=== PATIENT | female | born 1995 | race Caucasian/White ===

== ENCOUNTER 2017-09-08 11:38 | Emergency (ER) | payer SELFPAY ==
[~2017-09-08] VITALS: Ht 157.5 cm; Wt 79.4 kg
[~2017-09-08 11:38] MED LIST: ACHD5005 PO; ALLERGY MEDS; AZIT250T PO; BCP; CEPH500T PO; FERR-47 PO; IBP600T1 PO; Ibuprofen PO; OMEP-10 PO; OXYC-12 PO; PREN1TAB71 PO
--- OUTSIDE RECORDS SUMMARY | 2017-09-08 11:44 | XMS REPORT ---
Author Author LEROY LUNA [facility] Address [address] [place] [address] Care Team Providers Care Hospice Music Therapy Name Role Phone LEROY LUNA Unavailable PROBLEMS Type Condition ICD9-CM Code [id number] Code Onset Dates Condition Status SNOMED Code Problem Routine or child health check V20.2 Active 927243221 Problem General counseling for prescription of oral contraceptives V25.01 Active 045121414608915 Problem Anxiety F41.9 Active 51698774 Problem Non morbid obesity due to excess calories E66.09 Active 350243255 Problem examination or test, positive result V72.42 Active 124639360 Problem Screening examination for pulmonary tuberculosis V74.1 Active 430321148 Problem MENINGOCOCCAL DX V03.89 Active 97271425 Problem Problems related to high-risk sexual behavior V69.2 Active 592188885 ALLERGIES No Information SOCIAL HISTORY Never Assessed PLAN OF CARE VITAL SIGNS MEDICATIONS Unknown Medications RESULTS Name Result Date Reference Range TEST, URINE (IN HOUSE) RESULTS Negative Lot # [id number] Control + Exp date 05/03/2018 PROCEDURES Procedure Date Ordered Result Body Site URINE TEST January 16, 2017 DEPO PROVERA (150 MG/ML) January 16, 2017 THER/PROPH/DIAG INJ, SC/IM January 16, 2017 IMMUNIZATIONS Vaccine Route Administration Date Status DEPO PROVERA (150 MG/ML) IM Intramuscular January 16, 2017 Administered MEDICAL (GENERAL) HISTORY Type Description Date Medical History anxiety
--- OUTSIDE RECORDS SUMMARY | 2017-09-08 11:44 | XMS REPORT ---
Author Author LEROY LUNA [facility] Address [address] [place] [address] Care Team Providers Care Metalizing Supervisor Name Role Phone LEROY LUNA Unavailable PROBLEMS Type Condition ICD9-CM Code [id number]-GL Code Onset Dates Condition Status SNOMED Code Problem Routine or child health check V20.2 Active 672492725 Problem General counseling for prescription of oral contraceptives V25.01 Active 181107130413650 Problem Anxiety F41.9 Active 57080647 Problem Non morbid obesity due to excess calories E66.09 Active 239933544 Problem examination or test, positive result V72.42 Active 552823921 Problem Screening examination for pulmonary tuberculosis V74.1 Active 028744941 Problem MENINGOCOCCAL DX V03.89 Active Problem Problems related to high-risk sexual behavior V69.2 Active 220974018 ALLERGIES No Information SOCIAL HISTORY Never Assessed PLAN OF CARE VITAL SIGNS MEDICATIONS Unknown Medications RESULTS Name Result Date Reference Range TEST, URINE (IN HOUSE) 2016-10-30 RESULTS negative Lot # [id number] Control + Exp date 12/2017 PROCEDURES Procedure Date Ordered Result Body Site DEPO PROVERA (150 MG/ML) Oct 30, 2016 THER/PROPH/DIAG INJ, SC/IM Oct 30, 2016 URINE TEST Oct 30, 2016 IMMUNIZATIONS Vaccine Route Administration Date Status DEPO PROVERA (150 MG/ML) IM Intramuscular Oct 30, 2016 Administered MEDICAL (GENERAL) HISTORY Type Description Date Medical History anxiety
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
--- OUTSIDE RECORDS SUMMARY | 2017-09-08 11:44 | XMS REPORT ---
Author Author DAVID BENJAMIN [facility] Address [address] [place] [address] Care Team Providers Care Division Supervisor Name Role Phone DAVID BENJAMIN Unavailable PROBLEMS Type Condition ICD9-CM Code [id number] Code Onset Dates Condition Status SNOMED Code Problem Routine infant or child health check V20.2 Active 328428079 Problem General counseling for prescription of oral contraceptives V25.01 Active 186994365984328 Problem Anxiety F41.9 Active 21040437 Problem Non morbid obesity due to excess calories E66.09 Active 226845731 Problem examination or test, positive result V72.42 Active 092009237 Problem Screening examination for pulmonary tuberculosis V74.1 Active 277778996 Problem MENINGOCOCCAL DX V03.89 Active Problem Problems related to high-risk sexual behavior V69.2 Active 246086215 ALLERGIES Substance Reaction Event Type Date Status Penicillin G Potassium diarrhea Drug Allergy Nov, Active SOCIAL HISTORY Never Assessed PLAN OF CARE Activity Details Follow Up 4 Weeks Reason:obesity VITAL SIGNS Height 62.7 in 2016-11-10 Weight 169.0 lbs 2016-11-10 Temperature 98.7 degrees Fahrenheit 2016-11-10 Heart Rate 96 bpm 2016-11-10 Respiratory Rate 22 2016-11-10 BMI 30.22 kg/m2 2016-11-10 Blood pressure systolic 110 mmHg 2016-11-10 Blood pressure diastolic 72 mmHg 2016-11-10 MEDICATIONS Medication Instructions Dosage Frequency Start Date End Date Duration Status Zoloft 20 MG/ML Orally Once a day 2.5 ml 24h Active Phentermine HCl 15 MG Orally Once a day 1 capsule 24h Nov, Active Depo-Provera 150 MG/ML Active RESULTS No Results PROCEDURES No Known procedures IMMUNIZATIONS No Known Immunizations MEDICAL (GENERAL) HISTORY Type Description Date Medical History anxiety
--- OUTSIDE RECORDS SUMMARY | 2017-09-08 11:44 | XMS REPORT ---
Author Author DAVID BENJAMIN [facility] Address [address] [place] [address] Care Team Providers Care Police Artist Name Role Phone DAVID BENJAMIN Unavailable PROBLEMS Type Condition ICD9-CM Code GJE59-MD Code Onset Dates Condition Status SNOMED Code Problem Routine infant or child health check V20.2 Active 249735903 Problem General counseling for prescription of oral contraceptives V25.01 Active 593020641745009 Problem Anxiety F41.9 Active 23369720 Problem Non morbid obesity due to excess calories E66.09 Active 155336362 Problem examination or test, positive result V72.42 Active 912163889 Problem Screening examination for pulmonary tuberculosis V74.1 Active 307949787 Problem MENINGOCOCCAL DX V03.89 Active Problem Problems related to high-risk sexual behavior V69.2 Active 362428904 ALLERGIES No Information SOCIAL HISTORY Never Assessed PLAN OF CARE VITAL SIGNS MEDICATIONS Unknown Medications RESULTS No Results PROCEDURES No Known procedures IMMUNIZATIONS No Known Immunizations MEDICAL (GENERAL) HISTORY Type Description Date Medical History anxiety
--- OUTSIDE RECORDS SUMMARY | 2017-09-08 11:44 | XMS REPORT ---
Author Author DAVID BENJAMIN [facility] Address [address] [place] [address] Care Team Providers Care Eating Disorder Psychologist Name Role Phone DAVID BENJAMIN Unavailable PROBLEMS Type Condition ICD9-CM Code OTI55-DG Code Onset Dates Condition Status SNOMED Code Problem Routine infant or child health check V20.2 Active 525461267 Problem General counseling for prescription of oral contraceptives V25.01 Active 444523208929848 Problem Anxiety F41.9 Active 90476446 Problem Non morbid obesity due to excess calories E66.09 Active 512244219 Problem examination or test, positive result V72.42 Active 977769924 Problem Screening examination for pulmonary tuberculosis V74.1 Active 414091601 Problem MENINGOCOCCAL DX V03.89 Active 71528936 Problem Problems related to high-risk sexual behavior V69.2 Active 342117408 ALLERGIES Substance Reaction Event Type Date Status Penicillin G Potassium diarrhea Drug Allergy January, Active SOCIAL HISTORY Never Assessed PLAN OF CARE Activity Details Follow Up 4 Weeks Reason:mood disorder VITAL SIGNS Height 62.7 in 2017-01-22 Weight 168.3 lbs 2017-01-22 Temperature 98.3 degrees Fahrenheit 2017-01-22 Heart Rate 80 bpm 2017-01-22 Respiratory Rate 20 2017-01-22 BMI 30.10 kg/m2 2017-01-22 Blood pressure systolic 112 mmHg 2017-01-22 Blood pressure diastolic 72 mmHg 2017-01-22 MEDICATIONS Medication Instructions Dosage Frequency Start Date End Date Duration Status Phentermine HCl 30 MG Orally Once a day 1 capsule 24h Nov,Feb 28 days Active Depo-Provera 150 MG/ML Active Fluoxetine HCl 20 mg Orally Once a day 1 capsule in the morning 24h January 30 day(s) Active RESULTS No Results PROCEDURES No Known procedures IMMUNIZATIONS No Known Immunizations MEDICAL (GENERAL) HISTORY Type Description Date Medical History anxiety
--- OUTSIDE RECORDS SUMMARY | 2017-09-08 11:44 | XMS REPORT ---
Author Author DAVID BENJAMIN [facility] Address [address] [place] [address] Care Team Providers Care Rotational Moulding Operator Name Role Phone DAVID BENJAMIN Unavailable PROBLEMS Type Condition ICD9-CM Code OUG06-VK Code Onset Dates Condition Status SNOMED Code Problem Routine infant or child health check V20.2 Active 808787363 Problem General counseling for prescription of oral contraceptives V25.01 Active 862014759177116 Problem Anxiety F41.9 Active 52945599 Problem Non morbid obesity due to excess calories E66.09 Active 205507976 Problem examination or test, positive result V72.42 Active 627116631 Problem Screening examination for pulmonary tuberculosis V74.1 Active 671294005 Problem MENINGOCOCCAL DX V03.89 Active Problem Problems related to high-risk sexual behavior V69.2 Active 844293846 ALLERGIES Substance Reaction Event Type Date Status Penicillin G Potassium diarrhea Drug Allergy Sep, Active SOCIAL HISTORY No smoking Hx information available PLAN OF CARE VITAL SIGNS Height 62.7 in 2016-09-08 Weight 169.5 lbs 2016-09-08 Temperature 98.1 degrees Fahrenheit 2016-09-08 Heart Rate 92 bpm 2016-09-08 Respiratory Rate 24 2016-09-08 BMI 30.31 kg/m2 2016-09-08 Blood pressure systolic 110 mmHg 2016-09-08 Blood pressure diastolic 68 mmHg 2016-09-08 MEDICATIONS Medication Instructions Dosage Frequency Start Date End Date Duration Status Zoloft 20 MG/ML Orally Once a day 2.5 ml 24h Active Depo-Provera 150 MG/ML Active RESULTS Name Result Date Reference Range TSH 2016-09-08 TSH 0.631 0.450-4.500 CMP 2016-09-08 Glucose, Serum 101 65-99 BUN 16 6-20 Creatinine, Serum 0.99 0.57-1.00 eGFR If NonAfricn Am 82 >59 eGFR If Africn Am 94 >59 BUN/Creatinine Ratio 16 8-20 Sodium, Serum 138 134-144 Potassium, Serum 4.7 3.5-5.2 Chloride, Serum 98 96-106 Carbon Dioxide, Total 27 18-29 Calcium, Serum 9.5 8.7-10.2 Protein, Total, Serum 7.1 6.0-8.5 Albumin, Serum 4.5 3.5-5.5 Globulin, Total 2.6 1.5-4.5 A/G Ratio 1.7 1.1-2.5 Bilirubin, Total 0.6 0.0-1.2 Alkaline Phosphatase, S 71 39-117 AST (SGOT) 12 0-40 ALT (SGPT) 20 0-32 CBC 2016-09-08 WBC 11.6 3.4-10.8 RBC 4.63 3.77-5.28 Hemoglobin 13.5 11.1-15.9 Hematocrit 41.3 34.0-46.6 MCV 89 79-97 MCH 29.2 26.6-33.0 MCHC 32.7 31.5-35.7 RDW 12.6 12.3-15.4 Platelets 316 150-379 Neutrophils 62 Lymphs 30 Monocytes 6 Eos 1 Basos 0 Immature Cells Neutrophils (Absolute) 7.3 1.4-7.0 Lymphs (Absolute) 3.5 0.7-3.1 Monocytes(Absolute) 0.7 0.1-0.9 Eos (Absolute) 0.1 0.0-0.4 Baso (Absolute) 0.0 0.0-0.2 Immature Granulocytes 1 Immature Grans (Abs) 0.1 0.0-0.1 NRBC Hematology Comments: PROCEDURES Procedure Date Ordered Related Diagnosis Body Site Office Visit, Est Pt., Level 3 Sep 08, 2016 [facility] Sep [facility], 2016 VENIPUNCT, ROUTINE* Sep 08, 2016 IMMUNIZATIONS No Known Immunizations
--- NOTE | 2017-09-08 11:59 | ED Cough/URI ---
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 She's been having body aches, general malaise, low-grade fever, poor appetite, sore throat since yesterday. 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 Her boss insisted that she come to the emergency room, she states that she did not want to come. Timing/Duration: just prior to arrival Severity/Quality: productive cough Associated Symptoms: cough, fever/chills Allergies and Home Medications Allergies Coded Allergies: No Known Drug Allergies (Unverified , 10/31/11) Home Medications Cephalexin 500 Mg Tablet, 500 MG PO TID, #21 Prescribed by: GABINO LOWERY on 11/24/152230 Constitutional: see HPI, chills, weakness EENTM: see HPI Respiratory: see HPI, cough Genitourinary: no symptoms reported Musculoskeletal: no symptoms reported Skin: no symptoms reported Past Nqxubsn-Klfqqy-Jtglaa Hx Patient Social History Alcohol Use: Denies Use Recreational Drug Use: No Smoking Status: Never a Smoker Recent Foreign Travel: No Contact w/Someone Who Travel: No Recent Hopitalizations: No Physical Abuse: No Sexual Abuse: No Immunizations Up To Date Tetanus Booster (TDap): Less than 5yrs PED Vaccines UTD: Yes Surgeries History of Surgeries: Yes (dental) Respiratory History of Respiratory Disorde: No Cardiovascular History of Cardiac Disorders: No Neurological History of Neurological Disord: No Reproductive System Hx Reproductive Disorders: No Gastrointestinal History of Gastrointestinal Di: No Musculoskeletal History of Musculoskeletal Dis: No Endocrine History of Endocrine Disorders: No Cancer History of Cancer: No Psychosocial History of Psychiatric Problem: No Suicide Risk Score: 0 Integumentary History of Skin or Integumenta: No Blood Transfusions History of Blood Disorders: No Adverse Reaction to a Blood Tr: No Family Medical History Significant Family History: No Pertinent Family Hx Physical Exam Vital Signs Capillary Refill : General Appearance: WD/WN, no apparent distress Eyes: Bilateral Eye Normal Inspection, Bilateral Eye PERRL, Bilateral Eye EOMI HEENT: PERRL/EOMI, normal ENT inspection Neck: non-tender, full range of motion Respiratory: normal breath sounds, no respiratory distress, no accessory muscle use Cardiovascular: regular rate, rhythm, no murmur Gastrointestinal: normal bowel sounds, non tender, soft Neurologic/Psychiatric: alert, normal mood/affect, oriented x 3 Skin: normal color, warm/dry Progress/Results/Core Measures Suspected Sepsis SIRS Temperature: Pulse: Respiratory Rate: Blood Pressure / Mean: Results/Orders Vital Signs/I&O Capillary Refill : Departure Impression Impression: Primary Impression: Influenza Disposition: 01 HOME, SELF-CARE Condition: Stable Departure-Patient Inst. Decision time for Depature: 11:57 Referrals: YUAN CLEVELAND MD (PCP/Family) Primary Care Physician Patient Instructions: Flu, Adult (DC) Add. Discharge Instructions: 1. Your symptoms are consistent with influenza especially after your exposure to people with influenza. This typically lasts about 5-7 days. Rest is keep. Please stay home so you do not spread this to others. Stay home for the next 2- 3 days. Tamiflu is a treatment option for influenza but only shortness symptoms in adults by 23 hours and a common side effect his nausea and headache. With this in mind it is not a miracle drug, it is expensive and not particularly effective. For this reason we will not give Tamiflu. However, if someone had lung disease was very young or very old then we would treat with Tamiflu. Since you are otherwise healthy the benefits do not outweigh the adverse effects of this drug that you're likely to experience. Work/School Note: Work Release Form Date Seen in the Emergency Department: Sep 08, 2017 Return to Work: Sep 11, 2017 TRUDY WALLIS APRN Sep 08, 2017 11:59
[2017-09-08 12:05] VITALS: BP 137/71
== END 2017-09-08 12:05 | disposition home or self-care (01) ==
LOC: EDUNIT# 11:38 → ER 11:40
DX: J11.1 Influenza due to unidentified influenza virus with other respiratory manifestations (principal)
CPT/HCPCS: 99282

== ENCOUNTER 2018-07-07 13:20 | Emergency (ER) | payer SELFPAY ==
[~2018-07-07] VITALS: Ht 157.5 cm; Wt 95.3 kg
[2018-07-07] MEDS ORDERED: SULF1TAB35 PO (13:44)
[2018-07-07] MEDS ORDERED: HYDR-4226 PO (13:44)
--- NOTE | 2018-07-07 13:44 | ED Integumentary General ---
General Chief Complaint: Skin/Wound Problems Stated Complaint: L ARM RASH Source: patient Exam Limitations: no limitations History of Present Illness Date Seen by Provider: Jul 07, 2018 Time Seen by Provider: 13:41 Initial Comments To ER with a red bump in the left axilla for about 4 days. Last night while at work she had some increasing redness around the and her boss informed her that she should have this evaluated. No fevers chills nausea vomiting or systemic symptoms. Timing/Duration: getting worse Severity: moderate Location: extremities (left axilla) Associated Symptoms: No fever Allergies and Home Medications Allergies Coded Allergies: No Known Drug Allergies (Unverified , 10/31/11) Home Medications Cephalexin 500 Mg Tablet, 500 MG PO TID Prescribed by: GABINO LOWERY on 11/24/15 2237 Patient Home Medication List Home Medication List Reviewed: Yes Review of Systems Review of Systems Constitutional: see HPI; No chills, No fever EENTM: see HPI Respiratory: no symptoms reported Cardiovascular: no symptoms reported Genitourinary: no symptoms reported Musculoskeletal: no symptoms reported Skin: see HPI Psychiatric/Neurological: No Symptoms Reported Endocrine: No Symptoms Reported Past Ansrwcb-Hkjwuq-Yuufzi Hx Patient Social History Recent Foreign Travel: No Contact w/Someone Who Travel: No Recent Hopitalizations: No Immunizations Up To Date Tetanus Booster (TDap): Less than 5yrs PED Vaccines UTD: Yes Past Medical History Surgeries: Yes (dental) Respiratory: No Cardiac: No Neurological: No Reproductive Disorders: No Gastrointestinal: No Musculoskeletal: No Endocrine: No Cancer: No Psychosocial: No Integumentary: No Blood Disorders: No Adverse Reaction/Blood Tranf: No Family Medical History No Pertinent Family Hx Physical Exam Vital Signs Capillary Refill : General Appearance: WD/WN, no apparent distress HEENT: PERRL/EOMI, normal ENT inspection Neck: non-tender, full range of motion Respiratory: no respiratory distress, no accessory muscle use Neurologic/Psychiatric: alert, normal mood/affect, oriented x 3 Skin: normal color, warm/dry, other (fluctuant area of erythema to the left axilla about 3 cm in diameter with about 6 cm of surrounding erythema without induration beyond this.) Skin Problem Character: abscess Procedures/Interventions I&D : Blade Size: 11 Progress Area cleaned with chlorhexidine swab. Anesthetized with 2 mL of 1% lidocaine without epinephrine. 11 blade scalpel was then used to make a 1 cm incision over the most lateral area of this abscess. Large amount of bloody purulent material was expressed. Culture was collected and sent to lab. Covered with gauze. Departure Impression Primary Impression: Abscess Disposition: 01 HOME, SELF-CARE Condition: Stable Departure-Patient Inst. Decision time for Depature: 13:43 Referrals: [facility] (PCP/Family) Primary Care Physician Patient Instructions: Skin Abscess Add. Discharge Instructions: 1. Return to ER for any concerns 2. Warm compresses to this area. Change the gauze as needed to collect the drainage that comes from this over the next 1-2 weeks. Antibiotics in the meantime and pain medication as needed. All discharge instructions reviewed with patient and/or family. Voiced understanding. Scripts Hydrocodone/Acetaminophen (Pettibone 5-325 Tablet) 1 Each Tablet 1 EACH PO Q6H PRN for PAIN-MODERATE MDD 10, #10 TAB Prov: TRUDY WALLIS MANAGER OF CASE MANAGEMENT 07/07/18 Sulfamethoxazole/Trimethoprim (Bactrim Ds Tablet) 1 Each Tablet 1 EACH PO BID, #14 TAB Prov: TRUDY WALLIS MANAGER OF CASE MANAGEMENT 07/07/18 TRUDY WALLIS MANAGER OF CASE MANAGEMENT Jul 07, 2018 13:44
[2018-07-07] MEDS ORDERED: LIDOCAINE 1% INJ 20 ML 20 ML VIAL INJ ONE (13:45)
[2018-07-07 13:50] VITALS: BP 129/64
--- OUTSIDE RECORDS SUMMARY | 2018-07-07 13:57 | XMS REPORT ---
Author Author DAVID BENJAMIN Organization [facility] Address [address] [place] [address] Care Team Providers Care Gold Tooler Name Role Phone DAVID BENJAMIN Unavailable PROBLEMS Type Condition ICD9-CM Code YQT82-LE Code Onset Dates Condition Status SNOMED Code Problem Irregular intermenstrual bleeding N92.1 Active 73022945 Problem Anxiety F41.9 Active 95065990 Problem Non morbid obesity due to excess calories E66.09 Active 517439746 ALLERGIES No Information ENCOUNTERS Encounter Location Date Diagnosis [place] [address] [address] Apr, [place] [address] 61817- 0066 Dec, Irregular intermenstrual bleeding N92.1 and Anxiety F41.9 [place] [address] 93396- 5213 Nov, Anxiety F41.9 [place] [address] 71620- 9308 Nov, Pharyngitis due to other organism J02.8 [place] [address] 94655- 5650 Sep, Routine screening for STI (sexually transmitted infection) Z11.3 [place] [address] 62812- 8905 Sep, Encounter for Depo-Provera contraception Z30.42 [place] [address] 88021- 6463 Jul, Encounter for Depo-Provera contraception Z30.42 [place] [address] 64922- 8804 Jun, Dysuria R30.0 [place] [address] [place] [id number] [place] [address] 17043- 0620 Apr, [place] [address] [place] [id number] [place] [address] 45813- 3286 Apr, [place] [address] [place] [id number] [place] [address] 57874- 9014 Apr, Encounter for Depo-Provera contraception Z30.42 [place] [address] [place] [id number] [place] [address] 32092- 5233 Feb, [place] [address] 22514- 6570 Feb, Anxiety F41.9 and Non morbid obesity due to excess calories E66.09 [place] [address] [place] [id number] [place] [address] 18138- 7888 Feb, Routine gynecological examination Z01.419 [place] [address] [place] [id number] [place] [address] 46456- 0629 January, Non morbid obesity due to excess calories E66.09 and Anxiety F41.9 [place] [address] [place] [id number] [place] [address] 38990- 3347 January, Encounter for Depo-Provera contraception Z30.42 [place] [address] [place] [id number] [place] [address] 22520- 1217 Dec, Non morbid obesity due to excess calories E66.09 [place] [address] [place] [id number] [place] [address] 78569- 9217 Nov, Non morbid obesity due to excess calories E66.09 [place] [address] [place] [id number] [place] [address] 01187- 9363 Oct, Encounter for Depo-Provera contraception Z30.42 [place] [address] [place] [id number] [place] [address] 61103- 1258 Oct, [facility] [address], [place] [address] 25[address] Sep, [facility] [address] [address]- 2546 Sep, Non morbid obesity due to excess calories E66.09 [facility] [id number], [place] [address] 25[address] May, [facility] [address], [place] [address] 2546 Apr, [facility] [id number] [place] [address] 61471- 2546 Apr, [facility] [id number] [place] [address] 70633- 2546 Apr, [facility] [id number] [place] [address] 54281- 2546 Nov, [facility] [id number], [place] [address]- 2546 Nov, [facility] [id number], [place] [address]- 2546 Oct, [facility] [id number], [place] [address]- 2546 Sep, [facility] [address] [place] [id number] [address]- 2546 Aug, IMMUNIZATIONS No Known Immunizations SOCIAL HISTORY Never Assessed REASON FOR VISIT needs refills PLAN OF CARE VITAL SIGNS MEDICATIONS Medication Instructions Dosage Frequency Start Date End Date Duration Status Fluoxetine HCl 20 mg Orally Once a day 1 capsule in the morning 24h January 30 day(s) Active RESULTS No Results PROCEDURES No Known procedures INSTRUCTIONS MEDICATIONS ADMINISTERED No Known Medications MEDICAL (GENERAL) HISTORY Type Description Date Medical History anxiety
--- OUTSIDE RECORDS SUMMARY | 2018-07-07 13:57 | XMS REPORT ---
Author Author REEMA CAMPOS [facility] Address [address] [place] [address] Care Team Providers Care On Line Csr Name Role Phone REEMA CAMPOS Unavailable PROBLEMS Type Condition ICD9-CM Code XTU52-FU Code Onset Dates Condition Status SNOMED Code Problem Anxiety F41.9 Active 90802115 Problem Non morbid obesity due to excess calories E66.09 Active 559073429 ALLERGIES No Information ENCOUNTERS Encounter Location Date Diagnosis [place] [address] 701[address]- 2897 Nov, Pharyngitis due to other organism J02.8 [place] [address] 12582- 4300 Sep, Routine screening for STI (sexually transmitted infection) Z11.3 [place] [address] 67705- 3686 Sep, Encounter for Depo-Provera contraception Z30.42 [place] [address] 42184- 4456 Jul, Encounter for Depo-Provera contraception Z30.42 [place] [address] 43184- 7203 Jun, Dysuria R30.0 [place] [address] [place] [id number] [place] [address] 59032- 4238 Apr, [place] [address] 10085- 8683 Apr, [place] [address] [place] [id number] [place] [address] 38881- 9524 Apr, Encounter for Depo-Provera contraception Z30.42 [place] [address] [place] [address] 44898- 0717 Feb, [place] [address] 46395- 7529 Feb, Anxiety F41.9 and Non morbid obesity due to excess calories E66.09 [place] [address] [place] [id number] [place] [address] 49163- 0256 Feb, Routine gynecological examination Z01.419 [place] [address] [place] [id number] [place] [address] 04328- 7055 January, Non morbid obesity due to excess calories E66.09 and Anxiety F41.9 [place] [address] [place] [id number] [place] [address] 86916- 0137 January, Encounter for Depo-Provera contraception Z30.42 [place] [address] 93158- 9194 Dec, Non morbid obesity due to excess calories E66.09 [place] [address] [place] [id number] [place] [address] 18538- 6524 Nov, Non morbid obesity due to excess calories E66.09 [place] [address] [place] [id number] [place] [address] 05012- 0211 Oct, Encounter for Depo-Provera contraception Z30.42 [place] [address] [place] [id number] [place] [address] 94959- 4299 Oct, [place] [address] [place] [id number] [place] [address] 95263- 8299 Sep, [place] [address] 68489- 8909 Sep, Non morbid obesity due to excess calories E66.09 [place] [address] [place] [id number] [place] [address] 38145- 7909 May, [place] [address] [place] [address]- 5598 Apr, [facility] [address] [address]- 2028 Apr, [facility] [address] [address]- 8546 Apr, [facility] [address] [address] 2546 Nov, [facility] [address] [place] [id number] [place] [address] 26471 2546 Nov, [facility] [address] [address]- 8536 Oct, [facility] [address] [address]- 3930 Sep, [facility] [id number] [address]- 5373 Aug, IMMUNIZATIONS No Known Immunizations SOCIAL HISTORY Never Assessed REASON FOR VISIT Pap hx updated PLAN OF CARE VITAL SIGNS MEDICATIONS No Known Medications RESULTS No Results PROCEDURES No Known procedures INSTRUCTIONS MEDICATIONS ADMINISTERED No Known Medications MEDICAL (GENERAL) HISTORY Type Description Date Medical History anxiety
--- OUTSIDE RECORDS SUMMARY | 2018-07-07 13:57 | XMS REPORT ---
Author Author GERALD DAS [facility] Address [address] [place] [address] Care Team Providers Care Stone Operator Name Role Phone GERALD DAS Unavailable PROBLEMS Type Condition ICD9-CM Code KGB22-KP Code Onset Dates Condition Status SNOMED Code Problem Irregular intermenstrual bleeding N92.1 Active 85949758 Problem Anxiety F41.9 Active 48015480 Problem Non morbid obesity due to excess calories E66.09 Active 664637358 ALLERGIES Substance Reaction Event Type Date Status Topamax nausea and vomiting Drug Allergy Dec, Active Penicillin G Potassium diarrhea Drug Allergy Dec, Active ENCOUNTERS Encounter Location Date Diagnosis [place] [address] [place] [id number] [place] [address] 72348- 3132 Apr, [place] [address] [place] [id number] [place] [address] 54461- 7336 Dec, Irregular intermenstrual bleeding N92.1 and Anxiety F41.9 [place] [address] [place] [id number] [place] [address] 56002- 1493 Nov, Anxiety F41.9 [place] [address] [place] [id number] [place] [address] 51602- 9387 Nov, Pharyngitis due to other organism J02.8 [place] [address] [place] [id number] [place] [address] 17974- 5388 Sep, Routine screening for STI (sexually transmitted infection) Z11.3 [place] [address] [place] [id number] [place] [address] 43180- 0760 Sep, Encounter for Depo-Provera contraception Z30.42 [place] [address] [place] [id number] [place] [address] 68050- 2530 Jul, Encounter for Depo-Provera contraception Z30.42 [facility] [address] [place] [id number] [place] [address] 78117- 3125 Jun, Dysuria R30.0 [facility] [address] [place] [id number] [place] [address] 68138- 7416 Apr, [facility] [address] [place] [id number] [place] [address] 56277- 2353 Apr, [facility] [address] [place] [id number] [place] [address] 39903- 5199 Apr, Encounter for Depo-Provera contraception Z30.42 [place] [address] 25239- 0459 Feb, [place] [address] [place] [id number] [place] [address] 45631- 5150 Feb, Anxiety F41.9 and Non morbid obesity due to excess calories E66.09 [place] [address] [place] [id number] [place] [address] 31926- 4101 Feb, Routine gynecological examination Z01.419 [place] [address] [place] [id number] [place] [address] 41320- 1984 January, Non morbid obesity due to excess calories E66.09 and Anxiety F41.9 [place] [address] [place] [id number] [place] [address] 01942- 2885 January, Encounter for Depo-Provera contraception Z30.42 [place] [address] [place] [id number] [place] [address] 69529- 6890 Dec, Non morbid obesity due to excess calories E66.09 [place] [address] [place] [id number] [place] [address] 39294- 1098 Nov, Non morbid obesity due to excess calories E66.09 [place] [address] [place] [id number] [place] [address] 60357- 9461 Oct, Encounter for Depo-Provera contraception Z30.42 [facility] [address], [place] [address]- 1697 Oct, [facility] [address] [place] [id number] [place] [address] 547986- 0426 Sep, [facility] [address] [place] [id number] [address]- 2223 Sep, Non morbid obesity due to excess calories E66.09 [facility] [address] [place] [id number] [address] May, [facility] [address] [place] [id number] [place] [address] 916243- 5747 Apr, [facility] [address] [place] [id number] [place] [address] 52497655- 8356 Apr, [facility] [address] [place] [id number] [place] [address] 92371- 5700 Apr, [facility] [address] [place] [id number], [place] [address]- 9607 Nov, [facility] [address] [place] [id number] [place] [address] 744867- 5014 Nov, [facility] [address], [place] [address]- 6525 Oct, [facility] [address], [place] [address]- 5294 Sep, [facility] [id number] [address] 3670 Aug, IMMUNIZATIONS No Known Immunizations SOCIAL HISTORY Never Assessed REASON FOR VISIT control consult--Robert, --she is currently on depo, it had made her gain weight and bleed for multiple weeks at a time. PLAN OF CARE Activity Details Follow Up 6 Months, prn Reason:well woman VITAL SIGNS Height 62.7 in 2017-12-10 Weight 189.8 lbs 2017-12-10 Temperature 98.5 degrees Fahrenheit 2017-12-10 Heart Rate 90 bpm 2017-12-10 Respiratory Rate 20 2017-12-10 BMI 33.94 kg/m2 2017-12-10 Blood pressure systolic 112 mmHg 2017-12-10 Blood pressure diastolic 68 mmHg 2017-12-10 MEDICATIONS Medication Instructions Dosage Frequency Start Date End Date Duration Status Fluoxetine HCl 20 mg Orally Once a day 1 capsule in the morning 24h January Active Ortho Tri-Cyclen (28) 0.18/0.215/0.25 MG-35 MCG Orally Once a day 1 tablet 24h Dec, 28 day(s) Active RESULTS Name Result Date Reference Range TEST, URINE (IN HOUSE) 2017-12-10 RESULTS Negative Lot # [id number] Control + Exp date 06/2019 PROCEDURES Procedure Date Ordered Result Body Site URINE TEST December 10, 2017 INSTRUCTIONS MEDICATIONS ADMINISTERED No Known Medications MEDICAL (GENERAL) HISTORY Type Description Date Medical History anxiety
--- OUTSIDE RECORDS SUMMARY | 2018-07-07 13:57 | XMS REPORT ---
Author Author DAVID BENJAMIN Organization [facility] Address [address] [place] [address] Care Team Providers Care Winder Operator Name Role Phone DAVID BENJAMIN Unavailable PROBLEMS Type Condition ICD9-CM Code XPZ57-BT Code Onset Dates Condition Status SNOMED Code Problem Irregular intermenstrual bleeding N92.1 Active 24662431 Problem Anxiety F41.9 Active 28324112 Problem Non morbid obesity due to excess calories E66.09 Active 280755094 ALLERGIES Substance Reaction Event Type Date Status Topamax nausea and vomiting Drug Allergy Apr, Active Penicillin G Potassium diarrhea Drug Allergy Apr, Active ENCOUNTERS Encounter Location Date Diagnosis [place] [id number] [place] [address] 28910- 6728 Apr, Right upper quadrant pain R10.11 [place] [id number] [place] [address] 76200- 5568 Dec, Irregular intermenstrual bleeding N92.1 and Anxiety F41.9 [place] [id number] [place] [address] 63395- 8829 Nov, Anxiety F41.9 [place] [id number] [place] [address] 06325- 4108 Nov, Pharyngitis due to other organism J02.8 [place] [id number] [place] [address] 27764- 2126 Sep, Routine screening for STI (sexually transmitted infection) Z11.3 [place] [id number] [place] [address] 29399- 8092 Sep, Encounter for Depo-Provera contraception Z30.42 [place] [id number] [place] [address] 43763- 6886 Jul, Encounter for Depo-Provera contraception Z30.42 [facility] [address] [place] [id number] [place] [address] 09098- 9962 Jun, Dysuria R30.0 [facility] [address] [place] [id number] [place] [address] 74682- 8451 Apr, [facility] [address] 23419- 3088 Apr, [facility] [address] [place] [id number] [place] [address] 76603- 5272 Apr, Encounter for Depo-Provera contraception Z30.42 [place] [address] 12164- 4124 Feb, [place] [address] [place] [id number] [place] [address] 53273- 7743 Feb, Anxiety F41.9 and Non morbid obesity due to excess calories E66.09 [place] [address] [place] [id number] [place] [address] 58185- 6501 Feb, Routine gynecological examination Z01.419 [place] [address] [place] [id number] [place] [address] 30511- 5675 January, Non morbid obesity due to excess calories E66.09 and Anxiety F41.9 [place] [address] [place] [id number] [place] [address] 00028- 0379 January, Encounter for Depo-Provera contraception Z30.42 [place] [address] [place] [id number] [place] [address] 30253- 2773 Dec, Non morbid obesity due to excess calories E66.09 [place] [address] [place] [id number] [place] [address] 53216- 6303 Nov, Non morbid obesity due to excess calories E66.09 [place] [address] [place] [id number] [place] [address] 75028- 4466 Oct, Encounter for Depo-Provera contraception Z30.42 [facility] [address] [address]- 9583 Oct, [facility] [address] [place] [id number] [place] [address] 69946- 4886 Sep, [facility] [address] [place] [id number] [place] [address] 890580- 3129 Sep, Non morbid obesity due to excess calories E66.09 [facility] [address] [place] [id number] [place] [address] 00851- 2621 May, [facility] [address] [place] [id number] [place] [address] 07421- 7918 Apr, [facility] [address] [place] [id number] [place] [address] 830025- 1406 Apr, [facility] [address] [place] [id number] [place] [address] 31051- 5474 Apr, [facility] [address] [place] [id number] [place] [address] 95947- 7111 Nov, [facility] [address] [place] [id number] [place] [address] 967700- 2283 Nov, [facility] [address] [place] [address] 25040- 8078 Oct, [facility] [address] [place] [id number] [place] [address] 40501- 2188 Sep, [facility] [address], [place] [address]- 6911 Aug, IMMUNIZATIONS No Known Immunizations SOCIAL HISTORY Never Assessed REASON FOR VISIT Cramping Pt c/o possible hernia and also abdominal pain and vomiting with greasy foods along with vomiting MARCO Ansari PLAN OF CARE VITAL SIGNS Height 62.7 in 2018-04-03 Weight 194.6 lbs 2018-04-03 Temperature 97.8 degrees Fahrenheit 2018-04-03 Heart Rate 76 bpm 2018-04-03 Respiratory Rate 18 2018-04-03 BMI 34.80 kg/m2 2018-04-03 Blood pressure systolic 104 mmHg 2018-04-03 Blood pressure diastolic 62 mmHg 2018-04-03 MEDICATIONS Medication Instructions Dosage Frequency Start Date End Date Duration Status Ortho Tri-Cyclen (28) 0.18/0.215/0.25 MG-35 MCG Orally Once a day 1 tablet 24h Dec, 28 day(s) Active Pantoprazole Sodium 20 mg Orally Once a day 1 tablet 24h Apr, 30 day(s) Active Fluoxetine HCl 20 mg Orally Once a day 1 capsule in the morning 24h January Active RESULTS No Results PROCEDURES Procedure Date Ordered Result Body Site COMPREHEN METABOLIC PANEL Apr 03, 2018 ASSAY OF LIPASE Apr 03, 2018 COMPLETE CBC W/AUTO DIFF WBC Apr 03, 2018 VENIPUNCT, ROUTINE* Apr 03, 2018 ASSAY OF AMYLASE Apr 03, 2018 INSTRUCTIONS MEDICATIONS ADMINISTERED No Known Medications MEDICAL (GENERAL) HISTORY Type Description Date Medical History anxiety
--- OUTSIDE RECORDS SUMMARY | 2018-07-07 13:57 | XMS REPORT ---
Author Author DAVID BENJAMIN Organization [facility] Address [address] [place] [address] Care Team Providers Care Certified Veterinary Technician Name Role Phone DAVID BENJAMIN Unavailable PROBLEMS Type Condition ICD9-CM Code PXA24-IU Code Onset Dates Condition Status SNOMED Code Problem Irregular intermenstrual bleeding N92.1 Active 23039589 Problem Anxiety F41.9 Active 99054397 Problem Non morbid obesity due to excess calories E66.09 Active 508846973 ALLERGIES Substance Reaction Event Type Date Status Topamax nausea and vomiting Drug Allergy Nov, Active Penicillin G Potassium diarrhea Drug Allergy Nov, Active ENCOUNTERS Encounter Location Date Diagnosis [address] [address] Dec, Irregular intermenstrual bleeding N92.1 and Anxiety F41.9 [place] [id number] [place] [address]30- 7004 Nov, Anxiety F41.9 [place] [id number] [place] [address] 81516- 7185 Nov, Pharyngitis due to other organism J02.[address] [address] Sep, Routine screening for STI (sexually transmitted infection) Z11.3 [place] [id number] [place] [address]52- 7722 Sep, Encounter for Depo-Provera contraception Z30.42 [place] [id number] [place] [address] 39506- 3292 Jul, Encounter for Depo-Provera contraception Z30.[address] [address]- [address] Jun, Dysuria R30.0 [place] [address] [place] [id number] [place] [address] 60094- 8698 Apr, [place] [address] 39[address]- 280[address] Apr, [place] [address] [address]- 7378 Apr, Encounter for Depo-Provera contraception Z30.42 [place] [address] 42732- 5[address] Feb, [place] [address] [address]83- 20[address] Feb, Anxiety F41.9 and Non morbid obesity due to excess calories E66.09 [place] [address] 26934- 7[address] Feb, Routine gynecological examination Z01.419 [place] [address] [address]- 68[address] January, Non morbid obesity due to excess calories E66.09 and Anxiety F41.9 [place] [address] [place] [id number] [place] [address] 94511- 5787 January, Encounter for Depo-Provera contraception Z30.42 [place] [address] [place] [id number] [place] [address] 87408- 1589 Dec, Non morbid obesity due to excess calories E66.09 [place] [address] [place] [id number] [place] [address] 12622- 1123 Nov, Non morbid obesity due to excess calories E66.09 [place] [address] 9[address]58- 3893 Oct, Encounter for Depo-Provera contraception Z30.42 [place] [address] [place] [id number] [place] [address] 53472- 5053 Oct, [facility] [address] [address] Sep, [facility] [address] [place] [id number] [place] [address] 31705- 1416 Sep, Non morbid obesity due to excess calories E66.09 [facility] [address] [address]46 May, [facility] [address] [place] [address] [id number] [place] [address] 26306- 1840 Apr, [facility] [address] [place] [address] 37664- 4260 Apr, [facility] [address] [place] [id number] [place] [address] 96580- 9046 Apr, [facility] [address] [place] [id number] [place] [address] 29076- 4228 Nov, [facility] [address] [place] [id number] [place] [address] 59536- 1272 Nov, [facility] [address] [place] [id number] [place] [address] 16598- 1344 Oct, [facility] [address] [address] Sep, [facility] [address] [address] Aug, IMMUNIZATIONS No Known Immunizations SOCIAL HISTORY Never Assessed REASON FOR VISIT Cough, reports woke up at midnight with her throat swollen and hurting, ears throbbing with ROLON, sinus congestion and drainage. Reports blood tinged drainage from nose. She had to call into work. CBrumbackRN PLAN OF CARE VITAL SIGNS Height 62.7 in 2017-11-08 Weight 188.0 lbs 2017-11-08 Temperature 98.9 degrees Fahrenheit 2017-11-08 Heart Rate 88 bpm 2017-11-08 Respiratory Rate 18 2017-11-08 BMI 33.62 kg/m2 2017-11-08 Blood pressure systolic 110 mmHg 2017-11-08 Blood pressure diastolic 64 mmHg 2017-11-08 MEDICATIONS Medication Instructions Dosage Frequency Start Date End Date Duration Status Depo-Provera 150 MG/ML 1 ml Active Phentermine HCl 30 MG Orally Once a day 1 capsule 24h Feb, Not-Taking Tessalon Perles 100 mg Orally Three times a day 1 capsule as needed 8h Nov, Active Amoxicillin 500 mg Orally every 8 hrs 1 capsule 8h Nov, Nov, 10 day(s) Active Fluoxetine HCl 20 mg Orally Once a day 1 capsule in the morning 24h January 30 day(s) Active RESULTS No Results PROCEDURES No Known procedures INSTRUCTIONS MEDICATIONS ADMINISTERED No Known Medications MEDICAL (GENERAL) HISTORY Type Description Date Medical History anxiety
--- OUTSIDE RECORDS SUMMARY | 2018-07-07 13:58 | XMS REPORT ---
Author Author LEROY LUNA [facility] Address [address] [place] [address] Care Team Providers Care Roll Mill Operator Name Role Phone CHERYL LEROY Unavailable PROBLEMS Type Condition ICD9-CM Code LGP38-UV Code Onset Dates Condition Status SNOMED Code Problem Irregular intermenstrual bleeding N92.1 Active 75760163 Problem Anxiety F41.9 Active 35811427 Problem Non morbid obesity due to excess calories E66.09 Active 478224653 ALLERGIES No Information ENCOUNTERS Encounter Location Date Diagnosis [place] [id number] [place] [address] Dec, Irregular intermenstrual bleeding N92.1 and Anxiety F41.9 [place] [id number] [place] [address] 23016- 7843 Nov, Anxiety F41.[address] [address] Nov, Pharyngitis due to other organism J02.8 [place] [id number] [place] [address] 21592- 6148 Sep, Routine screening for STI (sexually transmitted infection) Z11.3 [place] [id number] [place] [address] 47738- 4928 Sep, Encounter for Depo-Provera contraception Z30.[address] [address]- [address] Jul, Encounter for Depo-Provera contraception Z30.42 [place] [id number] [place] [address] 89672- 2017 Jun, Dysuria R30.0 [place] [id number] [place] [address] 51616- 9701 Apr, [facility] [address] [place] [address] [id number] [place] [address] 44645- 6899 Apr, [facility] [address] [place] [address] [id number] [place] [address] 69661- 5571 Apr, Encounter for Depo-Provera contraception Z30.42 [place] [address] [place] [address] [id number] [place] [address] 82383- 0300 Feb, [place] [address] [place] [id number] [place] [address] 78332- 4461 Feb, Anxiety F41.9 and Non morbid obesity due to excess calories E66.09 [place] [address] [place] [id number] [place] [address] 59389- 0902 Feb, Routine gynecological examination Z01.419 [place] [address] [place] [address] [id number] [place] [address] 20164- 3678 January, Non morbid obesity due to excess calories E66.09 and Anxiety F41.9 [place] [address] [place] [id number] [place] [address] 30549- 8150 January, Encounter for Depo-Provera contraception Z30.42 [place] [address] [place] [id number] [place] [address] 29026- 4983 Dec, Non morbid obesity due to excess calories E66.09 [place] [address] [place] [id number] [place] [address] 56563- 1840 Nov, Non morbid obesity due to excess calories E66.09 [place] [address] [place] [id number] [place] [address] 64540- 7536 Oct, Encounter for Depo-Provera contraception Z30.42 [place] [address] [place] [id number] [place] [address] 24299- 4607 Oct, [place] [address] [place] [id number] [place] [address] 17388- 0867 Sep, [facility] [address] [id number] [address] Sep, Non morbid obesity due to excess calories E66.09 [facility] [address], [place] [address]- [address] May, [facility] [address], [place] [address]- 25[address] Apr, [facility] [address], [place] [address]- 2546 Apr, [facility] [address], [place] [address]- 2546 Apr, [facility] [address], [place] [address]- 2546 Nov, [facility] [address], [place] [address]- 2546 Nov, [facility] [address], [place] [address]- 2546 Oct, [facility] [address], [place] [address]- 25[address] Sep, [facility] [address] [place] [id number] [address]- 2546 Aug, IMMUNIZATIONS Vaccine Route Administration Date Status DEPO PROVERA (150 MG/ML) IM Intramuscular Apr 10, 2017 Administered SOCIAL HISTORY Never Assessed REASON FOR VISIT Depo Provera injection--[email or web address] PLAN OF CARE Activity Details Follow Up 3 Months Reason: VITAL SIGNS MEDICATIONS No Known Medications RESULTS Name Result Date Reference Range TEST, URINE (IN HOUSE) 2017-04-10 RESULTS negative Lot # [id number] Control + Exp date 10/31/18 PROCEDURES Procedure Date Ordered Result Body Site URINE TEST Apr 10, 2017 DEPO PROVERA (150 MG/ML) Apr 10, 2017 THER/PROPH/DIAG INJ, SC/IM Apr 10, 2017 INSTRUCTIONS MEDICATIONS ADMINISTERED No Known Medications MEDICAL (GENERAL) HISTORY Type Description Date Medical History anxiety
--- OUTSIDE RECORDS SUMMARY | 2018-07-07 13:58 | XMS REPORT ---
Author Author DAVID BENJAMIN Organization [facility] Address [address] [place] [address] Care Team Providers Care Knifeman Name Role Phone DAVID BENJAMIN Unavailable PROBLEMS Type Condition ICD9-CM Code JIC14-UA Code Onset Dates Condition Status SNOMED Code Problem Anxiety F41.9 Active 25933564 Problem Non morbid obesity due to excess calories E66.09 Active 917523995 ALLERGIES Substance Reaction Event Type Date Status Topamax nausea and vomiting Drug Allergy Feb, Active Penicillin G Potassium diarrhea Drug Allergy Feb, Active ENCOUNTERS Encounter Location Date Diagnosis [address] [address] Nov, Pharyngitis due to other organism J02.8 [place] [address] 36448- 8128 Sep, Routine screening for STI (sexually transmitted infection) Z11.3 [place] [address] [place] [id number] [place] [address] 17227- 5090 Sep, Encounter for Depo-Provera contraception Z30.42 [place] [address] [place] [id number] [place] [address] 89068- 2150 Jul, Encounter for Depo-Provera contraception Z30.42 [place] [address] [place] [address] [place] [address] 17468- 0839 Jun, Dysuria R30.[address] [address]- [address]657 Apr, [place] [address] [place] [address] [place] [address] 63006- 1400 Apr, [place] [address] 68015- 0709 Apr, Encounter for Depo-Provera contraception Z30.42 [place] [address] [place] [address] [place] [address] 17308- 6268 Feb, [place] [address] [place] [address] [place] [address] 35991- 3551 Feb, Anxiety F41.9 and Non morbid obesity due to excess calories E66.09 [place] [address] [place] [address] [place] [address] 56217- 0363 Feb, Routine gynecological examination Z01.419 [place] [address] [place] [address] [place] [address] 66437- 1960 January, Non morbid obesity due to excess calories E66.09 and Anxiety F41.9 [place] [address] [place] [address] [place] [address] 21551- 6808 January, Encounter for Depo-Provera contraception Z30.42 [place] [address] [place] [address] [place] [address] 66541- 2278 Dec, Non morbid obesity due to excess calories E66.09 [place] [address] [place] [address] [place] [address] 62960- 6761 Nov, Non morbid obesity due to excess calories E66.09 [place] [address] [place] [address] [place] [address] 88776- 2441 Oct, Encounter for Depo-Provera contraception Z30.42 [place] [address] [place] [address] [place] [address] 49082- 2216 Oct, [place] [address] [place] [address] [place] [address] 66349- 3039 Sep, [place] [address] [place] [address] [place] [address] 94006- 7631 Sep, Non morbid obesity due to excess calories E66.09 [place] [address] [place] [address] [place] [address] 93537- 6957 May, [facility] [address] [id number] [address]- 2546 Apr, [facility] [address] [address]- 2546 Apr, [facility] [address] [place] [id number] [address]- 2546 Apr, [facility] [address] [address]- 2546 Nov, [facility] [address] [address]- 2546 Nov, [facility] [address] [address]- 2546 Oct, [facility] [address] [address]- 2546 Sep, [facility] [address] [place] [id number] [address]- 2546 Aug, IMMUNIZATIONS No Known Immunizations SOCIAL HISTORY Never Assessed REASON FOR VISIT Anxiety. KBoleRN PLAN OF CARE VITAL SIGNS Height 62.7 in 2017-02-22 Weight 162.2 lbs 2017-02-22 Temperature 98.9 degrees Fahrenheit 2017-02-22 Heart Rate 84 bpm 2017-02-22 Respiratory Rate 18 2017-02-22 BMI 29.00 kg/m2 2017-02-22 Blood pressure systolic 110 mmHg 2017-02-22 Blood pressure diastolic 74 mmHg 2017-02-22 MEDICATIONS Medication Instructions Dosage Frequency Start Date End Date Duration Status Depo-Provera 150 MG/ML Active Phentermine HCl 30 MG Orally Once a day 1 capsule 24h Feb, Active Fluoxetine HCl 20 mg Orally Once a day 1 capsule in the morning 24h January 30 day(s) Active Phentermine HCl 30 MG Orally Once a day 1 capsule 24h 10 Nov, 2016Feb 28 days Active RESULTS No Results PROCEDURES No Known procedures INSTRUCTIONS MEDICATIONS ADMINISTERED No Known Medications MEDICAL (GENERAL) HISTORY Type Description Date Medical History anxiety
--- OUTSIDE RECORDS SUMMARY | 2018-07-07 13:58 | XMS REPORT ---
Author Author REEMA CAMPOS [facility] Address [address] [place] [address] Care Team Providers Care Manager Image Name Role Phone ANDRES REEMA Unavailable PROBLEMS Type Condition ICD9-CM Code KWR94-YP Code Onset Dates Condition Status SNOMED Code Problem Anxiety F41.9 Active 34578942 Problem Non morbid obesity due to excess calories E66.09 Active 533263946 ALLERGIES Substance Reaction Event Type Date Status Penicillin G Potassium diarrhea Drug Allergy Feb, Active ENCOUNTERS Encounter Location Date Diagnosis [place] [address] [address] Nov, Pharyngitis due to other organism J02.8 [place] [address] 68289- 8892 Sep, Routine screening for STI (sexually transmitted infection) Z11.3 [place] [address] 39984- 4647 Sep, Encounter for Depo-Provera contraception Z30.42 [place] [address] [place] [id number] [place] [address] 25323- 6086 Jul, Encounter for Depo-Provera contraception Z30.42 [place] [address] [place] [id number] [place] [address] 78308- 6455 Jun, Dysuria R30.0 [place] [address] 86810- 1274 Apr, [place] [address] [place] [id number] [place] [address] 97180- 1598 Apr, [place] [address] 57270- 4349 Apr, Encounter for Depo-Provera contraception Z30.42 [facility] [id number] [place] [address] 44634- 9911 Feb, [facility] [address] [place] [id number] [place] [address] 09278- 7932 Feb, Anxiety F41.9 and Non morbid obesity due to excess calories E66.09 [facility] [address] 23373- 8833 Feb, Routine gynecological examination Z01.419 [facility] [address] [place] [id number] [place] [address] 98827- 3335 January, Non morbid obesity due to excess calories E66.09 and Anxiety F41.9 [facility] [address] [id number] [place] [address] 13627- 4103 January, Encounter for Depo-Provera contraception Z30.42 [facility] [address] [place] [id number] [place] [address] 46304- 0388 Dec, Non morbid obesity due to excess calories E66.09 [facility] [address] [place] [id number] [place] [address] 22337- 0637 Nov, Non morbid obesity due to excess calories E66.09 [facility] [address] [place] [id number] [place] [address] 35723- 5141 Oct, Encounter for Depo-Provera contraception Z30.42 [facility] [id number] [place] [address] 28684- 7249 Oct, [facility] [address] [id number] [place] [address] 81083- 2102 Sep, [facility] [address] [place] [id number] [place] [address] 76900- 2455 Sep, Non morbid obesity due to excess calories E66.09 [facility] [address] [id number] [place] [address] 75357- 5395 May, [facility] [address] [facility] [id number] [address]- [address] Apr, [facility] [id number], [place] [address]- 2546 Apr, [facility] [id number] [address]- 2546 Apr, [facility] [address], [place] [address]- 2546 Nov, [facility] [id number], [place] [address]- 2546 Nov, [facility] [address], [place] [address]- 2546 Oct, [facility] [address], [place] [address] 2546 Sep, [facility] [id number], [place] [address]- 2546 Aug, IMMUNIZATIONS No Known Immunizations SOCIAL HISTORY Never Assessed REASON FOR VISIT Well Woman Exam--- jana rogers PLAN OF CARE Activity Details Follow Up 1 Year, sooner prn Reason: VITAL SIGNS Height 62.7 in 2017-02-20 Weight 163.0 lbs 2017-02-20 Temperature 97.0 degrees Fahrenheit 2017-02-20 Heart Rate 70 bpm 2017-02-20 Respiratory Rate 18 2017-02-20 BMI 29.15 kg/m2 2017-02-20 Blood pressure systolic 126 mmHg 2017-02-20 Blood pressure diastolic 72 mmHg 2017-02-20 MEDICATIONS Medication Instructions Dosage Frequency Start Date End Date Duration Status Depo-Provera 150 MG/ML Active Fluoxetine HCl 20 mg Orally Once a day 1 capsule in the morning 24h January 30 day(s) Active RESULTS Name Result Date Reference Range TRICHOMONAS (IN HOUSE) 2017-02-20 TRICHOMONAS Negative Control + Lot # [id number] Exp date 18/02/30 BACTERIAL VAGINOSIS (IN HOUSE) 2017-02-20 RESULTS Negative Control + Lot # [id number] Exp date 19/08 CULTURE, GENITAL 2017-02-20 Genital Culture, Routine Final report Result 1 PDF Report 2017-02-20 PDF Report1 LCLS PAP TEST, HPV IF ASCUS 2017-02-20 DIAGNOSIS: Specimen adequacy: Clinician provided ICD10: Performed by: . . Note: . GC/CHLAM PROBE (STATE) 2017-02-20 CHLAMYDIA negative GC negative PROCEDURES Procedure Date Ordered Result Body Site SPECIMEN HANDLING February 20, 2017 CULTURE, BACTERIA, OTHER February 20, 2017 TRICHOMONAS ASSAY W/OPTIC February 20, 2017 CORRAL VAG, DNA, DIR PROBE February 20, 2017 No Charge February 20, 2017 INSTRUCTIONS MEDICATIONS ADMINISTERED No Known Medications MEDICAL (GENERAL) HISTORY Type Description Date Medical History anxiety
--- OUTSIDE RECORDS SUMMARY | 2018-07-07 13:58 | XMS REPORT ---
Author Author REEMA CAMPOS [facility] Address [address] [place] [address] Care Team Providers Care Grinder Set Up Operator Centerless Name Role Phone REEMA CAMPOS Unavailable PROBLEMS Type Condition ICD9-CM Code [id number] Code Onset Dates Condition Status SNOMED Code Problem Irregular intermenstrual bleeding N92.1 Active 48888147 Problem Anxiety F41.9 Active 42558468 Problem Non morbid obesity due to excess calories E66.09 Active 674769621 ALLERGIES No Information ENCOUNTERS Encounter Location Date Diagnosis [place] [id number] [place] [address] 70486- 7681 Dec, Irregular intermenstrual bleeding N92.1 and Anxiety F41.9 [place] [id number] [place] [address] 09458- 6057 Nov, Anxiety F41.9 [place] [address] 8[address]15- 1607 Nov, Pharyngitis due to other organism J02.8 [place] [id number] [place] [address] 71195- 7592 Sep, Routine screening for STI (sexually transmitted infection) Z11.3 [place] [id number] [place] [address] 75110- 5704 Sep, Encounter for Depo-Provera contraception Z30.42 [place] [id number] [place] [address] 93133- 0651 Jul, Encounter for Depo-Provera contraception Z30.42 [place] [id number] [place] [address] 57977- 9473 Jun, Dysuria R30.0 [place] [id number] [place] [address] 37512- 5868 Apr, [place] [id number] [place] [address] 18551- 3495 Apr, [facility] [place] [id number] [place] [address] 83424- 3046 Apr, Encounter for Depo-Provera contraception Z30.42 [place] [address] 76335- 9997 Feb, [place] [address] 85717- 5470 Feb, Anxiety F41.9 and Non morbid obesity due to excess calories E66.09 [place] [id number] [place] [address] 52405- 6142 Feb, Routine gynecological examination Z01.419 [place] [address] 29758- 0113 January, Non morbid obesity due to excess calories E66.09 and Anxiety F41.9 [place] [id number] [place] [address] 50309- 9080 January, Encounter for Depo-Provera contraception Z30.42 [place] [id number] [place] [address] 74972- 8654 Dec, Non morbid obesity due to excess calories E66.09 [place] [id number] [place] [address] 73379- 5673 Nov, Non morbid obesity due to excess calories E66.09 [place] [id number] [place] [address] 15139- 2483 Oct, Encounter for Depo-Provera contraception Z30.42 [place] [id number] [place] [address] 85988- 4690 Oct, [facility] [place] [address] 85027- 1136 Sep, [facility] [place] [id number] [address] 14[address] Sep, Non morbid obesity due to excess calories E66.09 [facility] [place] [address] [facility] [id number] [address] May, [facility] [place] [address] [address] 25[address] Apr, [facility] [place] [address] [address] 2546 Apr, [facility] [place] [id number] [place] [address] 01111- 2546 Apr, [facility] [place] [address] [address] 2546 Nov, [facility] [place] [id number] [place] [address] 26725- 2546 Nov, [facility] [place] [address] [address] 2016 Oct, [facility] [place] [address] [address] 2546 Sep, [facility] [place] [address] [address] 50[address] Aug, IMMUNIZATIONS No Known Immunizations SOCIAL HISTORY Never Assessed REASON FOR VISIT Rx for Depo PLAN OF CARE VITAL SIGNS MEDICATIONS Medication Instructions Dosage Frequency Start Date End Date Duration Status Depo-Provera 150 MG/ML 1 ml Active RESULTS No Results PROCEDURES No Known procedures INSTRUCTIONS MEDICATIONS ADMINISTERED No Known Medications MEDICAL (GENERAL) HISTORY Type Description Date Medical History anxiety
--- OUTSIDE RECORDS SUMMARY | 2018-07-07 13:58 | XMS REPORT ---
Author Author LEROY LUNA [facility] Address [address] [place] [address] Care Team Providers Care Buckle Attaching Machine Operator Name Role Phone CHERYL LEROY Unavailable PROBLEMS Type Condition ICD9-CM Code [id number] Code Onset Dates Condition Status SNOMED Code Problem Irregular intermenstrual bleeding N92.1 Active 62023474 Problem Anxiety F41.9 Active 38158838 Problem Non morbid obesity due to excess calories E66.09 Active 425181944 ALLERGIES No Information ENCOUNTERS Encounter Location Date Diagnosis [place] [id number] [place] [address] 98449- 7572 Dec, Irregular intermenstrual bleeding N92.1 and Anxiety F41.9 [place] [id number] [place] [address] 56361- 4814 Nov, Anxiety F41.[address] 75622- 2651 Nov, Pharyngitis due to other organism J02.8 [place] [id number] [place] [address] 39194- 8585 Sep, Routine screening for STI (sexually transmitted infection) Z11.3 [place] [id number] [place] [address] 70303- 6688 Sep, Encounter for Depo-Provera contraception Z30.[address] 0[address]- 9030 Jul, Encounter for Depo-Provera contraception Z30.42 [place] [id number] [place] [address] 98091- 9641 Jun, Dysuria R30.0 [place] [id number] [place] [address] 65233- 0664 Apr, [facility] [id number] [place] [address] 38507- 8592 Apr, [facility] [id number] [place] [address] 71090- 7167 Apr, Encounter for Depo-Provera contraception Z30.42 [place] [id number] [place] [address] 50456- 9484 Feb, [place] [id number] [place] [address] 17247- 8664 Feb, Anxiety F41.9 and Non morbid obesity due to excess calories E66.09 [place] [id number] [place] [address] 97203- 5694 Feb, Routine gynecological examination Z01.419 [place] [id number] [place] [address] 78624- 8426 January, Non morbid obesity due to excess calories E66.09 and Anxiety F41.9 [place] [id number] [place] [address] 72667- 4352 January, Encounter for Depo-Provera contraception Z30.42 [place] [id number] [place] [address] 32353- 5677 Dec, Non morbid obesity due to excess calories E66.09 [place] [id number] [place] [address] 06643- 5544 Nov, Non morbid obesity due to excess calories E66.09 [place] [id number] [place] [address] 26542- 1837 Oct, Encounter for Depo-Provera contraception Z30.42 [place] [id number] [place] [address] 46614- 0600 Oct, [place] [id number] [place] [address] 44050- 9884 Sep, [facility] [id number], [place] [address]- 2546 Sep, Non morbid obesity due to excess calories E66.09 [facility] [address], [place] [address]- 2546 May, [facility] [address], [place] [address]- 2546 Apr, [facility] [address], [place] [address]- 2546 Apr, [facility] [address], [place] [address]- 2546 Apr, [facility] [address], [place] [address]- 2546 Nov, [facility] [address], [place] [address]- 2546 Nov, [facility] [address], [place] [address]- 2546 Oct, [facility] [address], [place] [address]- 2546 Sep, [facility] [id number], [place] [address]- 2546 Aug, IMMUNIZATIONS Vaccine Route Administration Date Status DEPO PROVERA (150 MG/ML) IM Intramuscular Jul 04, 2017 Administered SOCIAL HISTORY Never Assessed REASON FOR VISIT Depo Provera injection---DBennettRJeanette PLAN OF CARE VITAL SIGNS MEDICATIONS No Known Medications RESULTS Name Result Date Reference Range TEST, URINE (IN HOUSE) 2017-07-04 RESULTS negative Lot # [id number] Control + Exp date 12/01/18 PROCEDURES Procedure Date Ordered Result Body Site URINE TEST Jul 04, 2017 DEPO PROVERA (150 MG/ML) Jul 04, 2017 THER/PROPH/DIAG INJ, SC/IM Jul 04, 2017 INSTRUCTIONS MEDICATIONS ADMINISTERED No Known Medications MEDICAL (GENERAL) HISTORY Type Description Date Medical History anxiety
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
== END 2018-07-07 13:50 | disposition home or self-care (01) ==
LOC: EDUNIT# 13:20 → ER 13:21
DX: L02.412 Cutaneous abscess of left axilla (principal)
CPT/HCPCS: 87070; 87077; 87186; 87205; 99282

== ENCOUNTER → 2018-08-07 | Outpatient (CLI) | payer MEDICAID ==
[~2018-08-07] MED LIST changes: +HYDR-4226 PO; +SULF1TAB35 PO
--- NOTE | 2018-08-07 14:51 | Diagnostic Imaging Report ---
PROCEDURE: US OB SINGLE FETUS <14 WKS. TECHNIQUE: Multiple real-time grayscale images were obtained over the gravid uterus in various projections. INDICATION: Dating. FINDINGS: The uterus measures 10.6 x 5.8 x 5.8 cm. There is an intrauterine gestational sac containing a pole. Ahtanum-rump length measurement is 13 mm consistent with 7 weeks 5 days gestation. heart rate was recorded at 158 beats per minute. No perigestational sac hemorrhage is seen. Gestational sac shape is within normal limits. Adnexal evaluation does show a cyst involving left ovary approximately 3.7 cm in diameter. IMPRESSION: 1. Single live IUP approximately 7 weeks 5 days gestational age. Estimated date of confinement sonographically is 03/21/2019. 2. A 3.7 cm left ovarian cyst. Dictated by: Dictated on workstation # [id number]
== END ==
LOC: RAD 13:29
PROVIDERS: ATTEND Family Medicine
DX: O34.81 Maternal care for other abnormalities of pelvic organs, first trimester (principal); N83.202 Unspecified ovarian cyst, left side; Z3A.01 Less than 8 weeks gestation of pregnancy
CPT/HCPCS: 76801

== ENCOUNTER → 2018-10-29 | Outpatient (CLI) | payer MEDICAID ==
--- NOTE | 2018-10-29 11:16 | Diagnostic Imaging Report ---
INDICATION: survey. TECHNIQUE: Multiple real-time grayscale images were obtained over the gravid uterus. COMPARISON: 08/07/2018. FINDINGS: There is a single living intrauterine in a cephalic presentation. There is normal volume amniotic fluid. Placenta is anterior. There is no previa. The biometry correlates with gestational age of 19 weeks 6 days. Anatomical survey is unremarkable. This includes a four chambered heart and three-vessel cord. Heart rate is 143 beats per minute and regular. Maternal adnexa is unremarkable. Biometrical measurements are as follows: Biparietal 4.41 cm, age 19 weeks 3 days. Head circumference 16.83 cm, age 19 weeks 4 days. Abdominal circumference 14.05 cm, age 19 weeks 4 days. Femur length 3.32 cm, age 20 weeks 3 days. Sonographic estimate age: 19 weeks 6 days. Sonographic estimated date of delivery: 03/19/2019. Estimated Weight: 315 gm (+/- 46 gm). LMP percentile: 61%. heart rate: 143 beats per minute. number: 1 of 1. IMPRESSION: Single living intrauterine with sonographic estimated gestational age of 19 weeks 6 days. Estimated date of confinement of 03/19/2019. Dictated by: Dictated on workstation # [id number]
== END ==
LOC: RAD 09:23
PROVIDERS: ATTEND Family Medicine
DX: Z36.89 Encounter for other specified antenatal screening (principal); Z3A.19 19 weeks gestation of pregnancy
CPT/HCPCS: 76805

== ENCOUNTER 2019-03-17 05:56 | Inpatient (IN) | payer MEDICAID ==
[~2019-03-17] VITALS: Ht 157.5 cm; Wt 108.4 kg
[2019-03-17] VITALS (56 sets, daily range): BP systolic 97–153; BP diastolic 53–86
[2019-03-17 06:46] LABS: BASOPHILS % (AUTO) 0 % (0-10); EOSINOPHILS # (AUTO) 0.1 10^3/uL (0.0-0.3); EOSINOPHILS % (AUTO) 1 % (0-10); HEMATOCRIT 35 % (35-52); HEMOGLOBIN 10.9 G/DL (11.5-16.0); LYMPHOCYTES # (AUTO) 2.7 X 10^3 (1.0-4.0); LYMPHOCYTES % (AUTO) 28 % (12-44); MEAN CORPUSCULAR HEMOGLOBIN 26 PG (25-34); MEAN CORPUSCULAR HGB CONC 32 G/DL (32-36); MEAN CORPUSCULAR VOLUME 82 FL (80-99); MEAN PLATELET VOLUME 13.2 FL (7.4-10.4); MONOCYTES # (AUTO) 0.7 X 10^3 (0.0-1.0); MONOCYTES % (AUTO) 7 % (0-12); NEUTROPHILS # (AUTO) 6.1 X 10^3 (1.8-7.8); NEUTROPHILS % (AUTO) 63 % (42-75); PLATELET COUNT 185 10^3/uL (130-400); RED CELL DISTRIBUTION WIDTH 13.9 % (10.0-14.5); WHITE BLOOD COUNT 9.6 10^3/uL (4.3-11.0)
[2019-03-17] MEDS: D5 LR IV SOLUTION 1,000 ML IV SCH ×2 (06:59→14:57)
--- NOTE | 2019-03-17 07:03 | History & Physical-OB ---
OB - Chief Complaint & HPI Date/Time Date of Admission: Date of Admission: Mar 17, 2019 at 05:56 Date seen by a Provider: Mar 17, 2019 Time Seen by a Provider: 07:05 Chief Complaint/History OB-Reason for Admission/Chief: Induction of Labor Hx : 3 Hx Para: 2 Expected Date of Delivery: Mar 21, 2019 Gestational Age in Weeks: 39 Gestational Age in Days: 3 Admission Nurse Assessment Rev: Yes History of Labs GBS neg Allergies and Home Medications Allergies Coded Allergies: No Known Drug Allergies (Unverified , 10/31/11) Home Medications Cephalexin 500 Mg Tablet, 500 MG PO TID Prescribed by: GABINO LOWERY on 11/24/15 2231 Hydrocodone/Acetaminophen 1 Each Tablet, 1 EACH PO Q6H PRN for PAIN-MODERATE Prescribed by: TRUDY WALLIS on 07/07/18 1344 Sulfamethoxazole/Trimethoprim 1 Each Tablet, 1 EACH PO BID Prescribed by: TRUDY WALLIS on 07/07/18 1344 Patient Home Medication List Home Medication List Reviewed: Yes OB - History Hx of Present Care: Yes Ultrasounds: Normal mid trimester US Obstetrical Complications: None Medical Complications: None Delivery History Hx Blood Disorders: No Adverse Rxn to Tranfusion: No Patient Past Medical History no chronic medical problems Social History/Family History Alcohol Use: Denies Use Recreational Drug Use: No 2nd Hand Smoke Exposure: No Immunizations Tetanus Booster (TDap): Less than 5yrs OB - Admission Exam Physical Exam HEENT: Moist Membranes Heart: Rhythm Normal Lungs: Clear Abdomen: Gravid Extremities: Normal Reflexes: Normal Cervical Dilatation: 1cm Effacement: 50% Station: -3 Membranes: Intact Heart Rate: 130's Accelerations: Accelerations Present Short Term Variability: Present Drafter Structural Variability: Average (6-25) Saldana Scoring Tool (Modified) Dilation (cm): 1-2cm (1) Effacement (%): 31-51% (1) Descent/Station: -3 (0) Cervix Consistency: Medium(1) Cervix Position: Middle/Mid-Position (1) Add 1 point for: Each previous vaginal delivery (1) Saldana Score: 6 Labs Laboratory Tests Test 03/17/19 06:30 Range/Units White Blood Count 9.6 4.3-11.0 10^3/uL Red Blood Count 4.21 L 4.35-5.85 10^6/uL Hemoglobin 10.9 L 11.5-16.0 G/DL Hematocrit 35 35-52 % Mean Corpuscular Volume 82 80-99 FL Mean Corpuscular Hemoglobin 26 25-34 PG Mean Corpuscular Hemoglobin Concent 32 32-36 G/DL Red Cell Distribution Width 13.9 10.0-14.5 % Platelet Count 185 130-400 10^3/uL Mean Platelet Volume 13.2 H 7.4-10.4 FL Neutrophils (%) (Auto) 63 42-75 % Lymphocytes (%) (Auto) 28 12-44 % Monocytes (%) (Auto) 7 0-12 % Eosinophils (%) (Auto) 1 0-10 % Basophils (%) (Auto) 0 0-10 % Neutrophils # (Auto) 6.1 1.8-7.8 X 10^3 Lymphocytes # (Auto) 2.7 1.0-4.0 X 10^3 Monocytes # (Auto) 0.7 0.0-1.0 X 10^3 Eosinophils # (Auto) 0.1 0.0-0.3 10^3/uL Basophils # (Auto) 0.0 0.0-0.1 10^3/uL OB - Assessment/Plan/Diagnosis Assessment Assessment: induction of labor Admission Dx IUP at 39w3d gestation Admission Status: Inpatient Order (span 2 midnights) Reason for Inpatient Admission: AROM and L&D Plan Plan: Induction Induction Method: AROM Other Plan -YUAN Ngo MD Mar 17, 2019 07:03
[2019-03-17] MEDS ORDERED: LACTATED RINGERS 1,000 ML IV ONE ×2 (07:07→09:14)
[2019-03-17] MEDS ORDERED: SUFENTA 0.6MCG/ML BUPIVA 0.125 100 ML ONE (07:08)
[2019-03-17] MEDS ORDERED: OXYTOCIN/NORMAL SALINE 500 ML IV ONE (07:08)
[2019-03-17] MEDS ORDERED: CALCIUM CARBONATE 500 MG (TUMS) TAB.CHEW PO PRN (08:30)
[2019-03-17] MEDS ORDERED: BUPIVACAINE 0.25% 30 ML (SENSORCAINE) VIAL ONE (08:31)
[2019-03-17] MEDS ORDERED: fentaNYL INJECTION 100 MCG/2 ML AMP ONE (08:31)
[2019-03-17] MEDS ORDERED: CATHETER FLUSH 10 ML SYR IV PRN (09:15)
[2019-03-17] MEDS ORDERED: EPIDURAL (SUFENTA 0.6MCG/ML BUPIVA 0.125%) 100 ML BAG EPI SCH (09:15)
[2019-03-17] MEDS ORDERED: ONDANSETRON 4 MG/2 ML (SDV) Z0FRAN IV PRN (09:15)
[2019-03-17] MEDS ORDERED: diphenhydrAMINE 50 MG/ML INJ (BENADRYL) IV PRN (09:15)
[2019-03-17] MEDS ORDERED: NALOXONE 0.4 MG/ML 1 ML (NARCAN) VIAL IV PRN (09:15)
[2019-03-17] MEDS ORDERED: OXYTOCIN/NORMAL SALINE 500 ML IV SCH ×2 (09:18→16:49)
[2019-03-17] MEDS ORDERED: CATHETER FLUSH 10 ML SYR IV SCH ×2 (14:00→22:00)
--- NOTE | 2019-03-17 16:49 | OB Labor & Delivery Record ---
L&D History Date of Service Date of Service: Mar 17, 2019 History Expected Date of Delivery: Mar 21, 2019 Gestational Age in Weeks: 39 Hx : 3 Hx Para: 3 Complications Events: Routine care Operative Indications (Cesarea: N/A-Vaginal Delivery Intrapartal Events: None Other Complications group B strep negative L&D Stage1 Stage One Onset of Labor - Date: Mar 17, 2019 Onset of Labor - Time: 07:08 Monitors and Tracing Monitor Mode: Internal Heart Rate: 145 Monitor Accelerations: Uniform Monitor Decelerations: None Station: -1 Group Home Variability: Average (6-10) Short Term Variability: Present Presentation: Vertex Vital Signs VS - Last 72 Hours, by Label 03/17/19 03/17/19 03/17/19 03/17/19 07:27 07:42 07:57 08:13 Temp 98.2 Pulse 84 89 90 87 Resp 18 18 18 18 B/P (MAP) 118/71 (87) 123/58 (79) 124/59 (80) 100/68 (79) O2 Delivery Room Air Room Air Room Air Room Air 03/17/19 03/17/19 03/17/19 03/17/19 08:20 08:43 08:46 08:49 Temp 97.8 Pulse 85 110 106 Resp 18 18 18 B/P (MAP) 138/73 (94) 153/83 (106) 139/72 (94) Pulse Ox 99 100 100 O2 Delivery Room Air Room Air Room Air 03/17/19 03/17/19 03/17/19 03/17/19 08:52 08:55 08:58 09:01 Pulse 86 85 86 87 Resp 18 18 18 18 B/P (MAP) 143/68 (93) 140/73 (95) 141/67 (91) 138/68 (91) Pulse Ox 99 99 98 O2 Delivery Room Air Room Air Room Air Room Air 03/17/19 03/17/19 03/17/19 03/17/19 09:04 09:07 09:09 09:22 Temp 97.9 Pulse 88 84 91 76 Resp 18 18 18 18 B/P (MAP) 137/86 (103) 114/63 (80) 119/64 (82) 136/65 (88) Pulse Ox 98 98 O2 Delivery Room Air Room Air Room Air Room Air 03/17/19 03/17/19 03/17/19 03/17/19 09:27 09:34 09:38 09:43 Pulse 81 85 73 103 Resp 18 18 18 18 B/P (MAP) 138/71 (93) 128/75 (92) 110/59 (76) Pulse Ox 99 98 99 99 O2 Delivery Room Air Room Air Room Air Room Air 03/17/19 03/17/19 03/17/19 03/17/19 09:55 10:09 10:23 10:38 Temp 97.7 Pulse 80 79 80 80 Resp 18 18 18 18 B/P (MAP) 132/63 (86) 128/72 (90) 126/62 (83) 116/56 (76) Pulse Ox 98 100 100 99 O2 Delivery Room Air Room Air Room Air Room Air 03/17/19 03/17/19 03/17/19 03/17/19 10:53 11:09 11:24 11:39 Pulse 76 95 85 86 Resp 18 18 18 18 B/P (MAP) 136/68 (90) 129/64 (85) 127/71 (89) 116/60 (78) Pulse Ox 98 99 99 98 O2 Delivery Room Air Room Air Room Air Room Air 03/17/19 03/17/19 03/17/19 03/17/19 11:53 12:08 12:23 12:38 Pulse 82 77 87 88 Resp 18 18 18 18 B/P (MAP) 122/69 (86) 131/68 (89) 123/59 (80) 118/62 (80) Pulse Ox 95 97 93 96 O2 Delivery Room Air Room Air Room Air Room Air 03/17/19 03/17/19 03/17/19 03/17/19 12:53 13:10 13:23 13:39 Temp 98.4 Pulse 82 99 90 93 Resp 18 18 18 18 B/P (MAP) 121/58 (79) 128/59 (82) 124/64 (84) 131/81 (98) Pulse Ox 97 98 98 98 O2 Delivery Room Air Room Air Room Air Room Air 03/17/19 03/17/19 03/17/19 03/17/19 13:54 14:09 14:39 14:54 Temp 98.2 Pulse 86 82 97 95 Resp 18 18 18 18 B/P (MAP) 132/61 (84) 126/58 (80) 133/63 (86) 121/79 (93) Pulse Ox 99 99 98 99 O2 Delivery Room Air Room Air Room Air Room Air 03/17/19 03/17/19 15:09 15:24 Pulse 78 82 Resp 18 18 B/P (MAP) 128/69 (88) 126/73 (90) Pulse Ox 98 99 O2 Delivery Room Air Room Air Signs of Distress by FHT Signs of Distress no Rupture of Membranes Spontaneous Ruture of Membrane: No Amniotic Membrane Rupture Time: 707 Amniotic Membrane Fluid Desc.: Clear Vaginal Bleeding Description: None Induction/Anesthesia Epidural Cath Placement - Time: 57 L&D Stage2 Stage Two Stage II Date: Mar 17, 2019 Stage II Time: 16:13 Monitors and Tracing Monitor Mode: Internal Heart Rate: 145 Monitor Accelerations: Uniform Monitor Decelerations: None Livestock Speculator Variability: Average (6-10) Position: Left Occiput Anterior Presentation: Vertex Signs of Distress by FHT Signs of Distress no Cord Descript/Complications Cord Vessel Description: 3 Vessels Delivery Type Infant Delivery Method: Spontaneous Vaginal Anterior Shoulder: Left Episiotomy/Perineal Laceration Laceraction(s)/Extensions: No Condition of Infant Delivery 1 minute Comment: 8 5 minute Comment: 9 Condition of Infant Condition of Infant: Living Exam: No Observed Abnormalities Resuscitation Resuscitation: N/A - Spontaneous Resp L&D Stage3 Stage Three Stage III Date: Mar 17, 2019 Stage III Time: 16:18 Pictocin Pitocin Administration mu/min: 12 Pitocin ml/hr: 12 Pitocin Administration Comment: 1149 PITOCIN INCREASED. Placenta Delivery Placenta Delivery: Spontaneous Delivery Summary Summary Estimated blood loss (mL): 200 Condition of Delivery Examined: Cervix Examined Post Hemorrhage: No Intervention Required none Condition of Mother excellent YUAN CLEVELAND MD Mar 17, 2019 16:49
[2019-03-17] MEDS ORDERED: WITCH HAZEL(TUCKS) 40 EA JAR TOP PRN (17:00)
[2019-03-17] MEDS ORDERED: MEASLES,MUMPS,RUBELLA 1 EA INJ SQ ONE (17:00)
[2019-03-17] MEDS ORDERED: BENZOCAINE/MENTHOL (DERMOPLAST) 56 ML CAN TP PRN (17:00)
[2019-03-17] MEDS ORDERED: TETANUS,DIPTH,PERTUSS P/F (BOOSTRIX) 0.5 ML VIAL IM ONE (17:00)
[2019-03-17] MEDS ORDERED: ACETAMINOPHEN 500 MG TAB (TYLENOL) PO SCH (18:00)
[2019-03-17] MEDS: IBUPROFEN 600 MG (MOTRIN) TAB PO SCH (18:53)
[2019-03-18] MEDS: DOCUSATE SODIUM 100 MG (COLACE) CAP PO SCH ×2 (00:15→09:35)
[2019-03-18 00:16] VITALS: BP 101/58
[2019-03-18] MEDS: IBUPROFEN 600 MG (MOTRIN) TAB PO SCH ×3 (00:16→12:21)
[2019-03-18 05:47] LABS: BASOPHILS % (AUTO) 0 % (0-10); EOSINOPHILS # (AUTO) 0.1 10^3/uL (0.0-0.3); EOSINOPHILS % (AUTO) 1 % (0-10); HEMATOCRIT 32 % (35-52); HEMOGLOBIN 10.1 G/DL (11.5-16.0); LYMPHOCYTES # (AUTO) 3.1 X 10^3 (1.0-4.0); LYMPHOCYTES % (AUTO) 26 % (12-44); MEAN CORPUSCULAR HEMOGLOBIN 26 PG (25-34); MEAN CORPUSCULAR HGB CONC 32 G/DL (32-36); MEAN CORPUSCULAR VOLUME 83 FL (80-99); MONOCYTES # (AUTO) 0.8 X 10^3 (0.0-1.0); MONOCYTES % (AUTO) 7 % (0-12); NEUTROPHILS # (AUTO) 7.9 X 10^3 (1.8-7.8); NEUTROPHILS % (AUTO) 66 % (42-75); PLATELET COUNT 167 10^3/uL (130-400); RED CELL DISTRIBUTION WIDTH 14.1 % (10.0-14.5)
--- NOTE | 2019-03-18 07:22 | Discharge Summary ---
Diagnosis/Chief Complaint Date of Admission Mar 17, 2019 at 05:56 Date of Discharge March 18, 2019 Discharge Date: Mar 18, 2019 Discharge Time: 18:00 Admission Diagnosis Admission Diagnosis 1. Intrauterine at 39 weeks gestation Discharge Diagnosis 1. Intrauterine at 39 weeks gestation Reason Hospital Visit 23-year-old 3 now term 3 L3 who initially presents to labor and delivery in the morning of March 17, 2019 at 39 weeks 2 days gestation for induction of labor. She was noted to have an uneventful course. Her EDC was March 22, 2019. Her GBS status at 36 weeks was noted to be negative. Discharge Summary-OBS Procedures 1. Epidural per anesthesia 2. Spontaneous vaginal delivery Discharge Physical Examination Allergies: Coded Allergies: No Known Drug Allergies (Unverified , 10/31/11) Vitals & I&Os Vital Signs Date Time Temp Pulse Resp B/P (MAP) Pulse Ox O2 Delivery O2 Flow Rate FiO2 03/18/19 00:16 97.8 81 18 101/58 (72) 98 Room Air General Appearance: No Acute Distress Respiratory: Clear to Auscultation Cardiovascular: Regular Rate Abdominal: Soft (With uterus firm) Extremities: No Tenderness/Swelling Skin: No Rashes Neuro: Normal Gait, Normal Speech Hospital Course Was the Problem List Reviewed?: Yes Following delivery patient underwent routine care orders. She had no complications during the remainder of hospital stay. Her pre-hemoglobin before delivery was 10.9 and the day after delivery 10.1. Patient was tolerating regular diet. She had no complaints of shortness of breath or leg pain on March 18. She was felt ready for dismissal during the afternoon of March 18, 2019 with all questions answered. She will go ahead and utilize ibuprofen for the next 2 weeks for cramping. Pending Labs Laboratory Tests 03/18/19 05:25: White Blood Count 12.0, Red Blood Count 3.82, Hemoglobin 10.1, Hematocrit 32, Mean Corpuscular Volume 83, Mean Corpuscular Hemoglobin 26, Mean Corpuscular Hemoglobin Concent 32, Red Cell Distribution Width 14.1, Platelet Count 167, Mean Platelet Volume 13.0, Neutrophils (%) (Auto) 66, Lymphocytes (%) (Auto) 26, Monocytes (%) (Auto) 7, Eosinophils (%) (Auto) 1, Basophils (%) (Auto) 0, Neutrophils # (Auto) 7.9, Lymphocytes # (Auto) 3.1, Monocytes # (Auto) 0.8, Eosinophils # (Auto) 0.1, Basophils # (Auto) 0.0 Discharge Instructions to patient/family Please see electronic discharge instructions given to patient. Discharge Medications Reviewed and agree with Discharge Medication list on patient's Discharge Instruction sheet Clinical Quality Measures DVT/VTE Risk/Contraindication: Risk Factor Score Per Nursin RFS Level Per Nursing on Admit: 1=Low/No VTE PPX YUAN CLEVELAND MD Mar 18, 2019 07:22
--- NOTE | 2019-03-18 07:25 | Discharge Inst-Women's Service ---
Discharge Inst-Women's Serv Depart Medication/Instructions Instructions He may take ibuprofen [id number] 200 mg and take 3 tablets every 6 hours as needed for uterine cramping. Consults/Follow Up Additional Follow Up: Yes Activity Activity: Activity as Tolerated Driving Instructions: You May Drive Nothing Inside Vagina: No [place] (For 6 weeks) Diet Discharge Diet: Regular Diet Return to The Hospital For: As below Symptoms to Report to : Pain Increased, Fever Over 101 Degrees F, Vaginal Bleeding Increase, Vaginal Discharge Foul For Any Problems or Questions: Contact Your Physician YUAN CLEVELAND MD Mar 18, 2019 07:25
[2019-03-18 09:34] VITALS: BP 120/78
--- NOTE | 2019-03-18 09:44 | Anesthesia-Regional Post-Op ---
Regional Patient Condition Mental Status: Alert, Oriented x3 Circulation: Same as Pre-Op Headache: Absent Sensation: Full Recovery Motor Block: Absent Post Op Complications Complications None Follow Up Care/Instructions Patient Instructions None needed. Anesthesia/Patient Condition Patient is doing well, no complaints, stable vital signs, no apparent adverse anesthesia problems. No complications reported per nursing. D/C home per [facility] Criteria: Yes OLGA NEWELL CRNA Mar 18, 2019 09:44
[2019-03-18 14:35] VITALS: BP 139/83
== END 2019-03-18 18:35 | disposition home or self-care (01) | DRG 807 ==
LOC: LDRP 05:56
PROVIDERS: ADMIT Family Medicine; ATTEND Family Medicine
PROC: 10E0XZZ Delivery of Products of Conception, External Approach (ICD-10-PCS; principal; 2019-03-17)
PROC: 10907ZC Drainage of Amniotic Fluid, Therapeutic from Products of Conception, Via Natural or Artificial Opening (ICD-10-PCS; 2019-03-17)
DX: O80 Encounter for full-term uncomplicated delivery (principal); Z37.0 Single live birth; Z3A.39 39 weeks gestation of pregnancy
CPT/HCPCS: 36415; 85025; 86850; 86900; 86901

== ENCOUNTER 2019-07-03 05:57 | Emergency (ER) | payer SELFPAY ==
[~2019-07-03] VITALS: Ht 157 cm; Wt 113.6 kg
[2019-07-03] MEDS ORDERED: NS IV 1000 ML 1,000 ML IV STA (06:39)
[2019-07-03] MEDS ORDERED: diphenhydrAMINE 50 MG/ML INJ (BENADRYL) IV STA (06:39)
[2019-07-03] MEDS ORDERED: PROMETHAZINE INJ 25 MG/ML (PHENERGAN) AMP IVP STA (06:39)
[2019-07-03] MEDS ORDERED: DEXAMETHASONE 10 MG/ML (DECADRON) 1 ML VIAL IV ONE (06:45)
[2019-07-03 07:11] LABS: BASOPHILS % (AUTO) 0 % (0-10); EOSINOPHILS # (AUTO) 0.1 10^3/uL (0.0-0.3); EOSINOPHILS % (AUTO) 1 % (0-10); HEMATOCRIT 38 % (35-52); HEMOGLOBIN 12.3 G/DL (11.5-16.0); LYMPHOCYTES # (AUTO) 1.5 X 10^3 (1.0-4.0); LYMPHOCYTES % (AUTO) 25 % (12-44); MEAN CORPUSCULAR HEMOGLOBIN 27 PG (25-34); MEAN CORPUSCULAR HGB CONC 32 G/DL (32-36); MEAN CORPUSCULAR VOLUME 84 FL (80-99); MEAN PLATELET VOLUME 12.4 FL (7.4-10.4); MONOCYTES # (AUTO) 0.7 X 10^3 (0.0-1.0); MONOCYTES % (AUTO) 12 % (0-12); NEUTROPHILS # (AUTO) 3.6 X 10^3 (1.8-7.8); NEUTROPHILS % (AUTO) 62 % (42-75); PLATELET COUNT 204 10^3/uL (130-400); RED CELL DISTRIBUTION WIDTH 14.2 % (10.0-14.5); WHITE BLOOD COUNT 5.8 10^3/uL (4.3-11.0)
--- NOTE | 2019-07-03 07:20 | ED Headache ---
General Chief Complaint: Head/Cervical Problems Stated Complaint: MIGRAINE,CP Source: patient Exam Limitations: no limitations History of Present Illness Date Seen by Provider: Jul 03, 2019 Time Seen by Provider: 06:31 Initial Comments Here with report of headache that is frontal and persistent since Sunday. It has waxed and waned since onset and does respond a little bit to meds but has persisted. Also now with intermittent anterior central chest pressure that has been going on since last night. She has tried a variety of different medicines for the headache including Tylenol, Excedrin, Naprosyn and ibuprofen. Last dose of medicine was at 3 AM which was Tylenol. She reports taking a dose of Naprosyn last night at about 10 PM. Onset on Sunday with fever and body aches that then turned into the headache and chest discomfort. No report of neck pain or vision disturbances. She drove here. Timing/Duration: other (2 days) Severity/Quality: moderate Location: frontal Prior Headaches/Recent Trauma: occasional headaches Modifying Factors: improves with medication, improves with rest Associated Symptoms: No confusion; fatigue, fever/chills; No stiff neck, No vision changes, No weakness Allergies and Home Medications Allergies Coded Allergies: No Known Drug Allergies (Unverified , 10/31/11) Home Medications No Active Prescriptions or Reported Meds Patient Home Medication List Home Medication List Reviewed: Yes Review of Systems Review of Systems Constitutional: see HPI; No chills; fever Eyes: See HPI Ears, Nose, Mouth, Throat: no symptoms reported Respiratory: No cough, No short of breath Cardiovascular: chest pain; No edema, No palpitations Gastrointestinal: no symptoms reported; No nausea, No vomiting Genitourinary: no symptoms reported Musculoskeletal: no symptoms reported Skin: no symptoms reported Psychiatric/Neurological: See HPI All Other Systems Reviewed Negative Unless Noted: Yes Past Khidplx-Wbtimu-Dkwjyy Hx Past Med/Social Hx: Reviewed Nursing Past Med/Soc Hx Patient Social History Alcohol Use: Denies Use Recreational Drug Use: No Smoking Status: Never a Smoker 2nd Hand Smoke Exposure: No Recent Foreign Travel: No Contact w/Someone Who Travel: No Recent Hopitalizations: No Physical Abuse: No Sexual Abuse: No Mistreated: No Fear: No Immunizations Up To Date Tetanus Booster (TDap): Less than 5yrs PED Vaccines UTD: Yes Seasonal Allergies Seasonal Allergies: No Past Medical History Surgeries: Yes (dental) Respiratory: No Cardiac: No Neurological: No Reproductive Disorders: No Gastrointestinal: No Musculoskeletal: No Endocrine: No Cancer: No Psychosocial: No Integumentary: No Blood Disorders: No Adverse Reaction/Blood Tranf: No Family Medical History Reviewed Nursing Family Hx No Pertinent Family Hx Physical Exam Vital Signs Vital Signs - First Documented 07/03/19 06:53 Temp 36.8 Pulse 90 Resp 18 B/P (MAP) 154/99 (117) Pulse Ox 90 O2 Delivery Room Air Capillary Refill : Height, Weight, BMI Height: 5'2.00" Weight: 239lbs. 0.2oz. [id number]; 43.7 BMI Method:Stated General Appearance: WD/WN, no apparent distress HEENT: PERRL/EOMI, pharynx normal Neck: full range of motion, supple Cardiovascular: regular rate, rhythm, no murmur Respiratory: lungs clear, normal breath sounds Gastrointestinal: non tender, soft Back: normal inspection, no CVA tenderness, no vertebral tenderness Extremities: normal range of motion, non-tender Psychiatric: alert, oriented x 3 [place] Nerves: normal hearing, normal speech, PERRL Coordination/Gait: normal gait Motor/Sensory: no motor deficit, no sensory deficit Skin: normal color, warm/dry Progress/Results/Core Measures Results/Orders Lab Results Laboratory Tests Test 07/03/19 06:49 07/03/19 07:00 Range/Units White Blood Count 5.8 4.3-11.0 10^3/uL Red Blood Count 4.54 4.35-5.85 10^6/uL Hemoglobin 12.3 11.5-16.0 G/DL Hematocrit 38 35-52 % Mean Corpuscular Volume 84 80-99 FL Mean Corpuscular Hemoglobin 27 25-34 PG Mean Corpuscular Hemoglobin Concent 32 32-36 G/DL Red Cell Distribution Width 14.2 10.0-14.5 % Platelet Count 204 130-400 10^3/uL Mean Platelet Volume 12.4 H 7.4-10.4 FL Neutrophils (%) (Auto) 62 42-75 % Lymphocytes (%) (Auto) 25 12-44 % Monocytes (%) (Auto) 12 0-12 % Eosinophils (%) (Auto) 1 0-10 % Basophils (%) (Auto) 0 0-10 % Neutrophils # (Auto) 3.6 1.8-7.8 X 10^3 Lymphocytes # (Auto) 1.5 1.0-4.0 X 10^3 Monocytes # (Auto) 0.7 0.0-1.0 X 10^3 Eosinophils # (Auto) 0.1 0.0-0.3 10^3/uL Basophils # (Auto) 0.0 0.0-0.1 10^3/uL Sodium Level 141 135-145 MMOL/L Potassium Level 3.8 3.6-5.0 MMOL/L Chloride Level 107 98-107 MMOL/L Carbon Dioxide Level 23 21-32 MMOL/L Anion Gap 11 5-14 MMOL/L Blood Urea Nitrogen 10 7-18 MG/DL Creatinine 0.71 0.60-1.30 MG/DL Estimat Glomerular Filtration Rate > 60 BUN/Creatinine Ratio 14 Glucose Level 98 70-105 MG/DL Calcium Level 8.9 8.5-10.1 MG/DL Corrected Calcium 9.1 8.5-10.1 MG/DL Total Bilirubin 0.2 0.1-1.0 MG/DL Aspartate Amino Transf (AST/SGOT) 21 5-34 U/L Alanine Aminotransferase (ALT/SGPT) 32 0-55 U/L Alkaline Phosphatase 88 40-136 U/L Troponin I < 0.028 <0.028 NG/ML C-Reactive Protein High Sensitivity 4.43 H 0.00-0.50 MG/DL Total Protein 6.9 6.4-8.2 GM/DL Albumin 3.7 3.2-4.5 GM/DL Urine Color YELLOW Urine Clarity CLEAR Urine pH 6 5-9 Urine Specific [place] 1.005 L 1.016-1.022 Urine Protein NEGATIVE NEGATIVE Urine Glucose (UA) NEGATIVE NEGATIVE Urine Ketones NEGATIVE NEGATIVE Urine Nitrite NEGATIVE NEGATIVE Urine Bilirubin NEGATIVE NEGATIVE Urine Urobilinogen NORMAL NORMAL MG/DL Urine Leukocyte Esterase NEGATIVE NEGATIVE Urine RBC (Auto) NEGATIVE NEGATIVE Urine RBC NONE /HPF Urine WBC NONE /HPF Urine Squamous Epithelial Cells 2-5 /HPF Urine Crystals NONE /LPF Urine Bacteria NEGATIVE /HPF Urine Casts NONE /LPF Urine Mucus NEGATIVE /LPF Urine Culture Indicated NO Micro Results Microbiology 07/03/19 Influenza Types A,B Antigen (JAQUELIN) - Final, Complete My Orders Orders - GABINO LOWERY MD Ed Iv/Invasive Line Start (07/03/19 06:39) Urine Bedside (07/03/19 06:39) Ekg Tracing (07/03/19 06:39) Cbc With Automated Diff (07/03/19 06:39) Comprehensive Metabolic Panel (07/03/19 06:39) Hs C Reactive Protein (07/03/19 06:39) Troponin I (07/03/19 06:39) Promethazine Injection (Phenergan Injec (07/03/19 06:39) Ns Iv 1000 Ml (Sodium Chloride 0.9%) (07/03/19 06:39) Diphenhydramine Injection (Benadryl Inje (07/03/19 06:39) Dexamethasone Injection (Decadron Inject (07/03/19 06:45) Ua Culture If Indicated (07/03/19 07:14) Ketorolac Injection (Toradol Injection) (07/03/19 07:23) Influenza A And B Antigens (07/03/19 07:49) Chest Pa/Lat (2 View) (07/03/19 07:49) Medications Given in ED Current Medications Medications Dose Ordered Sig/Pool Route Start Time Stop Time Status Last Admin Dose Admin Dexamethasone Sodium Phosphate 10 mg ONCE ONCE IV 07/03/19 06:45 07/03/19 06:46 DC 07/03/19 06:58 10 MG Vital Signs/I&O 07/03/19 06:53 Temp 36.8 Pulse 90 Resp 18 B/P (MAP) 154/99 (117) Pulse Ox 90 O2 Delivery Room Air Progress Progress Note : Progress Note Seen and evaluated. IV, labs, UA and UCG ordered. Normal saline 1 L bolus. Phenergan 25 mg IV, Toradol 30 mg IV, Benadryl 25 mg IV and Decadron 10 mg IV ordered. Monitor patient. 0920: Chest x-ray and influenza screen added. These are negative. Overall no acute findings and she is doing better. Discharged home with return precautions. Patient and family verbalize understanding instructions and agreement with plan. Initial ECG Impression Date: Jul 03, 2019 Initial ECG Impression Time: 06:43 Initial ECG Rate: 80 Initial ECG Rhythm: Normal Sinus Initial ECG Comparisson: No Previous ECG Available Comment Sinus rhythm with left atrial abnormality. No evidence of ST elevation [place]. Interpreted by me. Diagnostic Imaging Diagonstic Imaging: Xray Plain Films/CT/US/NM/MRI: chest Comments [facility] POS [place], [place] POS NAME: [facility] REC#: [id number] PT STATUS: REG ER : 1995 PHYSICIAN: GABINO LOWERY MD ADMIT DATE: 07/03/19/ER Draft POSDate of Exam:07/03/19 CHEST PA/LAT (2 VIEW) INDICATION: Persistent headache and back pain. PA and lateral chest obtained at 0822 a.m. and compared to 11/24/15. Heart and mediastinal silhouette are normal in appearance. The lungs are clear. There is no pneumothorax or pleural fluid. IMPRESSION: Negative chest. Dictated on workstation # [id number] Dict: 07/03/19825 Trans: 07/03/19829 [facility] [id number] Interpreted by: MARTIN BUSTAMANTE MD Electronically signed by: Departure Impression Primary Impression: Frontal headache Disposition: 01 HOME, SELF-CARE Condition: Improved Departure-Patient Inst. Decision time for Depature: 09:21 Referrals: YUAN CLEVELAND MD (PCP/Family) Primary Care Physician Patient Instructions: Headache, Adult (DC) Add. Discharge Instructions: All discharge instructions reviewed with patient and/or family. Voiced understanding. Rest today and drink plenty of fluids. Follow-up with your doctor tomorrow for recheck and further evaluation. Return for worse pain, fever, neck pain, vomiting, weakness, breathing problems or other concerns as needed.You may take ibuprofen 600 mg every 8 hours as needed for pain. You may also take Tylenol/acetaminophen 1000 mg every 8 hours as needed for pain. Scripts No Active Prescriptions or Reported Meds Work/School Note: Work Release Form Date Seen in the Emergency Department: Jul 03, 2019 Return to Work: Jul 04, 2019 Restrictions: Return-No Fever (24hrs) GABINO LOWERY MD Jul 03, 2019 07:20 POS
[2019-07-03] MEDS ORDERED: KETOROLAC 30 MG/ML VIAL IVP STA (07:23)
[2019-07-03 07:27] LABS: BILIRUBIN,URINE NEGATIVE (NEGATIVE); CLARITY,URINE CLEAR; COLOR,URINE YELLOW; GLUCOSE, URINE (UA) NEGATIVE (NEGATIVE); KETONES,URINE NEGATIVE (NEGATIVE); LEUKOCYTE ESTERASE ,URINE NEGATIVE (NEGATIVE); NITRITE,URINE NEGATIVE (NEGATIVE); PH,URINE 6 (5-9); PROTEIN,URINE NEGATIVE (NEGATIVE)
[2019-07-03 07:32] LABS: ALANINE AMINOTRANSFERASE 32 U/L (0-55); ALBUMIN 3.7 GM/DL (3.2-4.5); ALKALINE PHOSPHATASE 88 U/L (40-136); BILIRUBIN,TOTAL 0.2 MG/DL (0.1-1.0); BUN/CREATININE RATIO 14; CALCIUM 8.9 MG/DL (8.5-10.1); CARBON DIOXIDE 23 MMOL/L (21-32); CHLORIDE 107 MMOL/L (98-107); CREATININE SERUM 0.71 MG/DL (0.60-1.30); GFR ESTIMATED > 60; GLUCOSE 98 MG/DL (70-105); POTASSIUM 3.8 MMOL/L (3.6-5.0); SODIUM 141 MMOL/L (135-145); TOTAL PROTEIN 6.9 GM/DL (6.4-8.2)
[2019-07-03 07:39] LABS: BACTERIA,URINE NEGATIVE /HPF
--- NOTE | 2019-07-03 08:25 | NUR ---
Pt reports pain 2/10 at this time.
--- NOTE | 2019-07-03 08:30 | Diagnostic Imaging Report ---
INDICATION: Persistent headache and back pain. PA and lateral chest obtained at 0822 a.m. and compared to 11/24/15. Heart and mediastinal silhouette are normal in appearance. The lungs are clear. There is no pneumothorax or pleural fluid. IMPRESSION: Negative chest. Dictated by: Dictated on workstation # [id number]
[2019-07-03 09:30] VITALS: BP 149/90
== END 2019-07-03 09:30 | disposition home or self-care (01) ==
LOC: EDUNIT# 05:57 → ER 05:59
DX: R51 Headache (principal)
CPT/HCPCS: 36415; 71046; 80053; 81000; 84484; 84703; 85025; 86141; 87804; 93005

== ENCOUNTER 2019-08-07 11:11 | Emergency (ER) | payer SELFPAY ==
[~2019-08-07] VITALS: Ht 162 cm; Wt 105.2 kg
[2019-08-07] MEDS ORDERED: NS IV 1000 ML 1,000 ML IV SCH ×2 (11:45→13:30)
[2019-08-07] MEDS ORDERED: IBUPROFEN 800 MG (MOTRIN) TAB PO ONE (11:45)
[2019-08-07] MEDS ORDERED: ONDANSETRON 4 MG/2 ML (SDV) Z0FRAN IVP ONE (11:45)
[2019-08-07 11:53] LABS: BASOPHILS % (AUTO) 0 % (0-10); EOSINOPHILS % (AUTO) 0 % (0-10); HEMATOCRIT 41 % (35-52); HEMOGLOBIN 13.4 G/DL (11.5-16.0); LYMPHOCYTES # (AUTO) 0.7 X 10^3 (1.0-4.0); LYMPHOCYTES % (AUTO) 4 % (12-44); MEAN CORPUSCULAR HEMOGLOBIN 28 PG (25-34); MEAN CORPUSCULAR HGB CONC 33 G/DL (32-36); MEAN CORPUSCULAR VOLUME 83 FL (80-99); MEAN PLATELET VOLUME 12.8 FL (7.4-10.4); MONOCYTES # (AUTO) 1.3 X 10^3 (0.0-1.0); MONOCYTES % (AUTO) 7 % (0-12); NEUTROPHILS # (AUTO) 16.4 X 10^3 (1.8-7.8); NEUTROPHILS % (AUTO) 89 % (42-75); PLATELET COUNT 202 10^3/uL (130-400); RED CELL DISTRIBUTION WIDTH 14.1 % (10.0-14.5); WHITE BLOOD COUNT 18.4 10^3/uL (4.3-11.0)
[2019-08-07 11:55] LABS: BILIRUBIN,URINE NEGATIVE (NEGATIVE); CLARITY,URINE CLEAR; COLOR,URINE YELLOW; GLUCOSE, URINE (UA) NEGATIVE (NEGATIVE); KETONES,URINE NEGATIVE (NEGATIVE); LEUKOCYTE ESTERASE ,URINE TRACE (NEGATIVE); NITRITE,URINE NEGATIVE (NEGATIVE); PROTEIN,URINE NEGATIVE (NEGATIVE)
[2019-08-07 12:01] LABS: BACTERIA,URINE MODERATE /HPF; RBC,URINE 0-2 /HPF; SQUAMOUS EPITHELIAL CELL,UR TNTC /HPF
[2019-08-07 12:11] LABS: ALANINE AMINOTRANSFERASE 19 U/L (0-55); ALKALINE PHOSPHATASE 92 U/L (40-136); BILIRUBIN,TOTAL 0.6 MG/DL (0.1-1.0); BUN/CREATININE RATIO 11; CALCIUM 8.7 MG/DL (8.5-10.1); CARBON DIOXIDE 19 MMOL/L (21-32); CHLORIDE 106 MMOL/L (98-107); CREATININE SERUM 0.75 MG/DL (0.60-1.30); GFR ESTIMATED > 60; GLUCOSE 124 MG/DL (70-105); LIPASE 18 U/L (8-78); POTASSIUM 3.6 MMOL/L (3.6-5.0); SODIUM 135 MMOL/L (135-145); TOTAL PROTEIN 7.2 GM/DL (6.4-8.2)
[2019-08-07 12:22] LABS: BAND NEUTROPHILS 15 %; LYMPHOCYTES % (MANUAL) 8 %; MONOCYTES % (MANUAL) 5 %; NEUTROPHILS % (MANUAL) 72 %
[2019-08-07 12:23] LABS: RBC MORPH NORMAL
[2019-08-07] MEDS ORDERED: HYOS0.1283 SL (13:52)
[2019-08-07] MEDS ORDERED: ONDA4TAB11 PO (13:52)
--- NOTE | 2019-08-07 13:53 | ED Abdominal Pain ---
General Chief Complaint: Abdominal/GI Problems Stated Complaint: VOMITING,DIARRHEA,FEVER Nursing Triage Note: pt presents to ed with complaints of n/v/d and fever since 0100. Sepsis Screen: Possible Sepsis Risk Source of Information: Patient Exam Limitations: No Limitations History of Present Illness Date Seen by Provider: Aug 07, 2019 Time Seen by Provider: 11:48 Initial Comments 24-year-old female who presents to the emergency room with complaints of severe nausea vomiting and diarrhea with associated fever that started around 1:00 this morning. She denies trying any [id number] medications. She reports that she is just dry heaving at this time and has not tried to eat or drink anything since early this morning. Timing/Duration: 12 Hours Associated Symptoms: Nausea/Vomiting Allergies and Home Medications Allergies Coded Allergies: Penicillins (Verified Allergy, Intermediate, Rash, 08/07/19) Home Medications Hyoscyamine Sulfate 0.125 Mg Tab.subl, 0.125 MG SL Q4H Prescribed by: YUDI HOOK on 08/07/19 1352 Ondansetron 4 Mg Tab.rapdis, 4 MG PO Q4H PRN for NAUSEA/VOMITING-1ST LINE Prescribed by: YUDI HOOK on 08/07/19 1352 Patient Home Medication List Home Medication List Reviewed: Yes Review of Systems Review of Systems Constitutional: see HPI, chills, fever Gastrointestinal: See HPI, Diarrhea, Nausea, Vomiting All Other Systems Reviewed Negative Unless Noted: Yes Past Ipkkdzd-Fjitdz-Ahhpna Hx Past Med/Social Hx: Reviewed Nursing Past Med/Soc Hx Patient Social History Alcohol Use: Denies Use Recreational Drug Use: No Smoking Status: Never a Smoker 2nd Hand Smoke Exposure: No Recent Foreign Travel: No Contact w/Someone Who Travel: No Recent Infectious Disease Expo: No Recent Hopitalizations: No Physical Abuse: No Sexual Abuse: No Mistreated: No Fear: No Immunizations Up To Date Tetanus Booster (TDap): Less than 5yrs PED Vaccines UTD: Yes Seasonal Allergies Seasonal Allergies: No Past Medical History Surgeries: Yes (dental) Respiratory: No Cardiac: No Neurological: No Reproductive Disorders: No Genitourinary: No Gastrointestinal: No Musculoskeletal: No Endocrine: No HEENT: No Cancer: No Psychosocial: No Integumentary: No Blood Disorders: No Adverse Reaction/Blood Tranf: No Family Medical History Reviewed Nursing Family Hx No Pertinent Family Hx Physical Exam Vital Signs Vital Signs - First Documented 08/07/19 11:30 Temp 37.8 Pulse 148 Resp 16 B/P (MAP) 117/69 (85) Pulse Ox 95 Capillary Refill : Less Than 3 Seconds Height/Weight/BMI Height: 5'2.00" Weight: 239lbs. 0.2oz. [id number]; 40.00 BMI Method:Stated General Appearance: WD/WN, no apparent distress Respiratory: chest non-tender, lungs clear, normal breath sounds, no respiratory distress, no accessory muscle use Cardiovascular: normal peripheral pulses, regular rate, rhythm, no edema, no gallop, no JVD, no murmur Gastrointestinal: normal bowel sounds, non tender, soft, no organomegaly, no pulsatile mass Extremities: normal capillary refill Neurologic/Psychiatric: alert, normal mood/affect, oriented x 3 Skin: normal color, warm/dry Focused Exam Lactate Level 08/07/19 11:35: Lactic Acid Level 0.73 Lactic Acid Level Laboratory Tests Test 08/07/19 11:35 Lactic Acid Level 0.73 MMOL/L (0.50-2.00) Progress/Results/Core Measures Results/Orders Lab Results Laboratory Tests Test 08/07/19 11:35 08/07/19 11:43 Range/Units White Blood Count 18.4 H 4.3-11.0 10^3/uL Red Blood Count 4.86 4.35-5.85 10^6/uL Hemoglobin 13.4 11.5-16.0 G/DL Hematocrit 41 35-52 % Mean Corpuscular Volume 83 80-99 FL Mean Corpuscular Hemoglobin 28 25-34 PG Mean Corpuscular Hemoglobin Concent 33 32-36 G/DL Red Cell Distribution Width 14.1 10.0-14.5 % Platelet Count 202 130-400 10^3/uL Mean Platelet Volume 12.8 H 7.4-10.4 FL Neutrophils (%) (Auto) 89 H 42-75 % Lymphocytes (%) (Auto) 4 L 12-44 % Monocytes (%) (Auto) 7 0-12 % Eosinophils (%) (Auto) 0 0-10 % Basophils (%) (Auto) 0 0-10 % Neutrophils # (Auto) 16.4 H 1.8-7.8 X 10^3 Lymphocytes # (Auto) 0.7 L 1.0-4.0 X 10^3 Monocytes # (Auto) 1.3 H 0.0-1.0 X 10^3 Eosinophils # (Auto) 0.0 0.0-0.3 10^3/uL Basophils # (Auto) 0.0 0.0-0.1 10^3/uL Neutrophils % (Manual) 72 % Lymphocytes % (Manual) 8 % Monocytes % (Manual) 5 % Band Neutrophils 15 % Blood Morphology Comment NORMAL Sodium Level 135 135-145 MMOL/L Potassium Level 3.6 3.6-5.0 MMOL/L Chloride Level 106 98-107 MMOL/L Carbon Dioxide Level 19 L 21-32 MMOL/L Anion Gap 10 5-14 MMOL/L Blood Urea Nitrogen 8 7-18 MG/DL Creatinine 0.75 0.60-1.30 MG/DL Estimat Glomerular Filtration Rate > 60 BUN/Creatinine Ratio 11 Glucose Level 124 H 70-105 MG/DL Lactic Acid Level 0.73 0.50-2.00 MMOL/L Calcium Level 8.7 8.5-10.1 MG/DL Corrected Calcium 8.7 8.5-10.1 MG/DL Total Bilirubin 0.6 0.1-1.0 MG/DL Aspartate Amino Transf (AST/SGOT) 14 5-34 U/L Alanine Aminotransferase (ALT/SGPT) 19 0-55 U/L Alkaline Phosphatase 92 40-136 U/L Total Protein 7.2 6.4-8.2 GM/DL Albumin 4.0 3.2-4.5 GM/DL Lipase 18 8-78 U/L Urine Color YELLOW Urine Clarity CLEAR Urine pH 5.0 5-9 Urine Specific [place] >=1.030 1.016-1.022 Urine Protein NEGATIVE NEGATIVE Urine Glucose (UA) NEGATIVE NEGATIVE Urine Ketones NEGATIVE NEGATIVE Urine Nitrite NEGATIVE NEGATIVE Urine Bilirubin NEGATIVE NEGATIVE Urine Urobilinogen 0.2 < = 1.0 MG/DL Urine Leukocyte Esterase TRACE NEGATIVE Urine RBC (Auto) NEGATIVE NEGATIVE Urine RBC 0-2 /HPF Urine WBC 5-10 H /HPF Urine Squamous Epithelial Cells TNTC H /HPF Urine Crystals NONE /LPF Urine Bacteria MODERATE H /HPF Urine Casts NONE /LPF Urine Mucus NEGATIVE /LPF Urine Culture Indicated YES My Orders Orders - YUDI HOOK Comprehensive Metabolic Panel (08/07/19 11:45) Lipase (08/07/19 11:45) Ua Culture If Indicated (08/07/19 11:45) Ed Iv/Invasive Line Start (08/07/19 11:45) Cbc With Automated Diff (08/07/19 11:45) Ns Iv 1000 Ml (Sodium Chloride 0.9%) (08/07/19 11:45) Ondansetron Injection (Zofran Injectio (08/07/19 11:45) Ibuprofen Tablet (Motrin Tablet) (08/07/19 11:45) Manual Differential (08/07/19 11:35) Urine Culture (08/07/19 11:43) Blood Culture (08/07/19 12:05) Lactic Acid Analyzer (08/07/19 12:05) Ns Iv 1000 Ml (Sodium Chloride 0.9%) (08/07/19 13:30) Medications Given in ED Current Medications Medications Dose Ordered Sig/Pool Route Start Time Stop Time Status Last Admin Dose Admin Ibuprofen 800 mg ONCE ONCE PO 08/07/19 11:45 08/07/19 11:50 DC 08/07/19 12:40 800 MG Ondansetron HCl 4 mg ONCE ONCE IVP 08/07/19 11:45 08/07/19 11:50 DC 08/07/19 12:09 4 MG Vital Signs/I&O 08/07/19 08/07/19 11:30 15:00 Temp 37.8 37.8 Pulse 148 148 Resp 16 16 B/P (MAP) 117/69 (85) 117/69 (85) Pulse Ox 95 95 Blood Pressure Mean: 85 POS Progress Progress Note : Time: 13:48 Progress Note I have seen and evaluated the patient. I've informed her of her laboratory and imaging studies. She is feeling much better at this time. I believe believe her elevated white count is due to her vomiting and diarrhea. She agrees with plans of care, plans for discharge, return precautions were given. Departure Impression Primary Impression: Viral gastroenteritis Disposition: 01 HOME, SELF-CARE Condition: Stable/Unchanged Departure-Patient Inst. Decision time for Depature: 13:48 Referrals: YUAN CLEVELAND MD (PCP/Family) Primary Care Physician Patient Instructions: Viral Gastroenteritis, Adult (DC) Add. Discharge Instructions: Take medications as directed. Follow-up with primary care provider within 1 week for recheck. You may use [id number] antidiarrheals as directed per packaging. Tylenol Motrin for pain and fever. Drink plenty of fluids to stay hydrated. Return back to the emergency room for worsening symptoms or concerns as needed. All discharge instructions reviewed with patient and/or family. Voiced understanding. Scripts Hyoscyamine Sulfate (Levsin-Sl) 0.125 Mg Tab.subl 0.125 MG SL Q4H, #10 TAB 0 Refills Prov: YUDI HOOK 08/07/19 Ondansetron (Ondansetron Odt) 4 Mg Tab.rapdis 4 MG PO Q4H PRN for NAUSEA/VOMITING-1ST LINE for 7 Days, #30 TAB Prov: YUID HOOK 08/07/19 YUDI HOOK Aug 07, 2019 13:52 POS
[2019-08-07 15:00] VITALS: BP 117/69
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
== END 2019-08-07 14:59 | disposition home or self-care (01) ==
LOC: EDUNIT# 11:11 → ER 11:13
DX: A08.4 Viral intestinal infection, unspecified (principal); Z88.0 Allergy status to penicillin
CPT/HCPCS: 36415; 80053; 81000; 83605; 83690; 85007; 85027; 87040; 87088; 96374

== ENCOUNTER → 2020-12-08 | Outpatient (CLI) | payer OTHER, MEDICAID ==
[~2020-12-08] MED LIST changes: +HYOS0.1283 SL; +ONDA4TAB11 PO
--- NOTE | 2020-12-08 11:33 | Diagnostic Imaging Report ---
PROCEDURE: US OB SINGLE FETUS <14 WKS. TECHNIQUE: Multiple real-time grayscale images were obtained over the gravid uterus in various projections. INDICATION: dating. FINDINGS: There is an intrauterine gestational sac containing a pole consistent with 8 weeks 5 days gestation. heart rate was recorded 167 bpm. No sanya-gestational sac hemorrhage is detected. Ovaries were not visualized but no adnexal mass or free fluid is seen. IMPRESSION: Single live IUP 8 weeks 5 days gestational age. Estimated date of confinement sonographically is 07/15/2021. Dictated by: Dictated on workstation # [id number]
== END ==
LOC: RAD 09:55
PROVIDERS: ATTEND Family Medicine
DX: Z34.91 Encounter for supervision of normal pregnancy, unspecified, first trimester (principal); Z3A.08 8 weeks gestation of pregnancy
CPT/HCPCS: 76801

== ENCOUNTER 2021-02-11 20:26 | Emergency (ER) | payer OTHER, MEDICAID ==
[~2021-02-11] VITALS: Ht 157.4 cm; Wt 120.9 kg
[2021-02-11 22:43] LABS: BILIRUBIN,URINE NEGATIVE (NEGATIVE); CLARITY,URINE CLEAR; COLOR,URINE YELLOW; GLUCOSE, URINE (UA) NEGATIVE (NEGATIVE); KETONES,URINE NEGATIVE (NEGATIVE); LEUKOCYTE ESTERASE ,URINE NEGATIVE (NEGATIVE); NITRITE,URINE NEGATIVE (NEGATIVE); PROTEIN,URINE NEGATIVE (NEGATIVE)
[2021-02-11 22:45] LABS: AMORPHOUS SEDIMENT,UR LARGE AMOR URATES /LPF; BACTERIA,URINE FEW /HPF
[2021-02-11] MEDS ORDERED: NITR-65 PO (22:55)
--- NOTE | 2021-02-11 22:55 | ED GU-Female ---
General Chief Complaint: OB < 20 WEEKS Stated Complaint: 18 WKS PREG/ABD PAIN Nursing Triage Note: pt reports that she started having lower abd pain while doing housework today. also c/o nausea et dizziness. denies dysuria. clear vaginal discharge. 18 weeks Nursing Sepsis Screen: No Definite Risk Source: patient History of Present Illness Date Seen by Provider: Feb 11, 2021 Time Seen by Provider: 22:04 Initial Comments PT ARRIVES VIA POV FROM HOME\\ PT STATES SHE IS 18 WEEKS , WITH UNKNOWN LMP PT IS AB 0 PT HAD ROUTINE OB VISIT WITH DR. CLEVELAND TODAY PT HAS HAD 2 OR 3 ULTRASOUNDS WITH , LAST ONE WAS A COUPLE OF WEEKS AGO, AND HAVE ALL BEEN NORMAL HAS NOT HAD ANY PROBLEMS WITH STATES SHE WAS FINE THIS MORNING, THEN CLEANED HOUSE THIS AFTERNOON, AND AROUND 1400 TODAY SHE BEGAN TO HAVE SOME NAUSEA AND SUPRAPUBIC PAIN STATES SHE ALSO HAD A HEADACHE--HAS FREQUENT HEADACHES, AND DR. CLEVELAND PRESCRIBED FIORCET, WHICH SHE TOOK AROUND 1700 AND HEADACHE IS GONE NO NAUSEA AT THIS TIME ALSO HAS ONGOING DIZZINESS, WHICH IS ALSO NOT PRESENT AT THIS TIME DENIES URINARY SYMPTOMS NO VAGINAL BLEEDING OR DISCHARGE NO FEVER HAS BEEN EATING AND DRINKING NORMALLY AND ATE PIZZA AT 1700 TODAY AND A FEW BOTTLES OF WATER, NORMALLY ALSO DRINKS AT LEAST 2 LITERS OF REGULAR PEPSI A DAY HAD NORMAL BM TODAY HAS NOT TAKEN ANYTHING FOR ABDOMINAL PAIN PCP AND LGSW: DR. CLEVELAND Allergies and Home Medications Allergies Coded Allergies: Penicillins (Verified Allergy, Intermediate, Rash, 08/07/19) Home Medications Hyoscyamine Sulfate 0.125 Mg Tab.subl, 0.125 MG SL Q4H Prescribed by: YUDI HOOK on 08/07/19 1352 Nitrofurantoin Monohyd/M-Cryst 100 Mg Capsule, 1 TAB PO BID Prescribed by: CHECO AMEZCUA on 02/11/21 7195 Ondansetron 4 Mg Tab.rapdis, 4 MG PO Q4H PRN for NAUSEA/VOMITING-1ST LINE Prescribed by: YDUI HOOK on 08/07/19 1352 Patient Home Medication List Home Medication List Reviewed: Yes Review of Systems Review of Systems Constitutional: no symptoms reported; No chills, No fever EENTM: no symptoms reported Respiratory: no symptoms reported Cardiovascular: no symptoms reported Gastrointestinal: see HPI, abdominal pain; No diarrhea, No loss of appetite; nausea; No vomiting Genitourinary: no symptoms reported : Yes Expected Date of Delivery: Jul 15, 2021 Musculoskeletal: no symptoms reported; No back pain Skin: no symptoms reported Psychiatric/Neurological: See HPI Endocrine: No Symptoms Reported Hematologic/Lymphatic: No Symptoms Reported Past Yvaqbqi-Uoigyo-Kvivaw Hx Past Med/Social Hx: Reviewed and Corrections made Patient Social History 2nd Hand Smoke Exposure: No Recent Infectious Disease Expo: No Recent Hopitalizations: No Immunizations Up To Date Tetanus Booster (TDap): Less than 5yrs PED Vaccines UTD: Yes Seasonal Allergies Seasonal Allergies: No Past Medical History Surgeries: Yes (dental) Respiratory: No Cardiac: No Neurological: No : Yes Expected Date of Delivery: Jul 15, 2021 Hx : 4 Hx Para: 3 Hx Total # of Abortions (Sp): 0 Reproductive Disorders: No Genitourinary: No Gastrointestinal: No Musculoskeletal: No Endocrine: Yes (OBESITY) HEENT: No Cancer: No Psychosocial: No Integumentary: No Blood Disorders: No Adverse Reaction/Blood Tranf: No Family Medical History No Pertinent Family Hx Physical Exam Vital Signs Vital Signs - First Documented 02/11/21 02/11/21 21:15 23:24 Temp 36.8 Pulse 100 Resp 18 B/P (MAP) 130/60 Pulse Ox 99 O2 Delivery Room Air Capillary Refill : Less Than 3 Seconds Height, Weight, BMI Height: 5'2.00" Weight: 239lbs. 0.2oz. 108.382427kj; 48.00 BMI Method:Stated General Appearance: WD/WN, no apparent distress, obese, other (WALKS UPRIGHT AND MOVES WITHOUT DIFFICULTY. LAYING OUTSTRETCHED WITH ARMS OVERHEAD) Cardiovascular: normal peripheral pulses, regular rate, rhythm, no murmur Respiratory: normal breath sounds, no respiratory distress, no accessory muscle use Gastrointestinal: soft, tenderness (MILD SUPRAPUBIC TENDERNESS. ), other (FUNDUS 2 FB'S BELOW UMBILICUS AND NO TENDERNESS AT FUNDUS. ) Extremities: normal inspection, no pedal edema, normal capillary refill Neurologic/Psychiatric: no motor/sensory deficits, alert, normal mood/affect, oriented x 3 Skin: normal color, warm/dry; No rash Progress/Results/Core Measures Suspected Sepsis Recent Fever Within 48 Hours: No Infection Criteria Present: None New/Unexplained Altered Menta: No Sepsis Screen: No Definite Risk SIRS Temperature: Pulse: 100 Respiratory Rate: 18 Blood Pressure / Mean: Results/Orders Lab Results Laboratory Tests Test 02/11/21 21:05 Range/Units Urine Color YELLOW Urine Clarity CLEAR Urine pH 6.0 5-[address] [place] [address] >=1.030 1.016-1.022 Urine Protein NEGATIVE NEGATIVE Urine Glucose (UA) NEGATIVE NEGATIVE Urine Ketones NEGATIVE NEGATIVE Urine Nitrite NEGATIVE NEGATIVE Urine Bilirubin NEGATIVE NEGATIVE Urine Urobilinogen 0.2 < = 1.0 MG/DL Urine Leukocyte Esterase NEGATIVE NEGATIVE Urine RBC (Auto) NEGATIVE NEGATIVE Urine RBC NONE /HPF Urine WBC 2-5 /HPF Urine Crystals PRESENT H /LPF Urine Amorphous Sediment LARGE MAXX URATES H /LPF Urine Bacteria FEW H /HPF Urine Casts NONE /LPF Urine Mucus NEGATIVE /LPF Urine Culture Indicated YES My Orders Orders - CHECO AMEZCUA DO Ua Culture If Indicated (02/11/21 22:04) Heart Tones (02/11/21 22:04) Urine Culture (02/11/21 21:05) Vital Signs/I&O 02/11/21 02/11/21 21:15 23:24 Temp 36.8 36.8 Pulse 100 100 Resp 18 18 B/P (MAP) 130/60 Pulse Ox 99 99 O2 Delivery Room Air Room Air Capillary Refill : Less Than 3 Seconds Progress Note : Progress Note FHR 145 Departure Impression Primary Impression: UTI (urinary tract infection) in in second trimester Disposition: 01 HOME, SELF-CARE Condition: Stable Departure-Patient Inst. Decision time for Depature: 22:50 Referrals: YUAN CLEVELAND MD (PCP/Family) Primary Care Physician Patient Instructions: Urinary Tract Infections in Add. Discharge Instructions: LOTS OF CLEAR LIQUIDS TYLENOL NEEDED FOR PAIN FOLLOW UP WITH DR CLEVELAND ON SUNDAY IF NO BETTER All discharge instructions reviewed with patient and/or family. Voiced understanding. Scripts Nitrofurantoin Monohyd/M-Cryst (Macrobid 100 mg Capsule) 100 Mg Capsule 1 TAB PO BID, #20 CAP Prov: CHECO AMEZCUA DO 02/11/21 CHECO AMEZCUA DO Feb 11, 2021 22:55
[2021-02-11 23:24] VITALS: BP 130/60
== END 2021-02-11 23:24 | disposition home or self-care (01) ==
LOC: EDUNIT# 20:26 → ER 20:27
DX: O23.42 Unspecified infection of urinary tract in pregnancy, second trimester (principal); O99.212 Obesity complicating pregnancy, second trimester; Z3A.18 18 weeks gestation of pregnancy
CPT/HCPCS: 81000; 87088

== ENCOUNTER → 2021-02-25 | Outpatient (CLI) | payer MEDICAID, OTHER ==
[~2021-02-25] MED LIST changes: +NITR-65 PO
--- NOTE | 2021-02-25 11:08 | Diagnostic Imaging Report ---
INDICATION: survey. TECHNIQUE: Multiple real-time grayscale images were obtained over the gravid uterus. COMPARISON: None FINDINGS: There is a single live fetus in a variable presentation. heart rate was recorded at 143 bpm. Placenta is anterior. Amniotic fluid volume is normal. Cervical length is approximately 5.6 cm. kidneys, bladder and stomach are unremarkable. There is a four-chamber heart. There is a three-vessel cord with normal insertion. brain anatomy and spine evaluation is somewhat limited due to position and maternal body habitus. Biometrical measurements are as follows: Biparietal 4.76 cm, age 20 weeks 3 days. Head circumference 17.81 cm, age 20 weeks 2 days. Abdominal circumference 15.45 cm, age 20 weeks 5 days. Femur length 3.14 cm, age 19 weeks 6 days. Sonographic estimate age: 20 weeks 3 days. Sonographic estimated date of delivery: 07/12/2021. Estimated Weight: 341 gm (+/- 50 gm). LMP percentile: 83%. heart rate: 144 beats per minute. number: 1 of 1. IMPRESSION: Single live IUP 20 weeks 3 days gestational age with estimated date of confinement sonographically 07/12/2021. survey is unremarkable although head anatomy and spine anatomy evaluation is somewhat limited due to position and maternal body habitus. Dictated by: Dictated on workstation # [id number]
== END ==
LOC: RAD 10:00
PROVIDERS: ATTEND Family Medicine
DX: Z34.92 Encounter for supervision of normal pregnancy, unspecified, second trimester (principal); Z3A.20 20 weeks gestation of pregnancy
CPT/HCPCS: 76805

== ENCOUNTER → 2021-04-25 | Outpatient (CLI) | payer MEDICAID ==
[~2021-04-25] MED LIST changes: -SULF1TAB35 PO; +SULF1TAB38 PO
--- NOTE | 2021-04-25 16:06 | Diagnostic Imaging Report ---
INDICATION: Follow-up spine and head anatomy. TECHNIQUE: Multiple real-time grayscale images were obtained over the gravid uterus. COMPARISON: 02/25/2021. FINDINGS: There is a single live fetus in a breech presentation. heart rate was recorded at 124 bpm. Placenta is anterior. Amniotic fluid volume is normal. The head anatomy is unremarkable today. The spine remains somewhat limited due to position. IMPRESSION: Follow-up OB ultrasound demonstrating head anatomy to be unremarkable. spine anatomy remains limited due to position. Dictated by: Dictated on workstation # [id number]
== END ==
LOC: RAD 13:00
PROVIDERS: ATTEND Family Medicine
DX: Z34.90 Encounter for supervision of normal pregnancy, unspecified, unspecified trimester (principal); Z3A.00 Weeks of gestation of pregnancy not specified
CPT/HCPCS: 76816

== ENCOUNTER 2021-06-03 16:47 | Outpatient (CLI) | payer MEDICAID ==
[2021-06-03] VITALS (8 sets, daily range): BP systolic 117–137; BP diastolic 73–78
[~2021-06-03] VITALS: Ht 157.5 cm; Wt 128.4 kg
[2021-06-03 18:25] LABS: ALBUMIN 3.1 GM/DL (3.2-4.5); HEMOGLOBIN 11.9 g/dL (11.5-16.0); MEAN PLATELET VOLUME 13.5 fL (9.0-12.2)
[2021-06-03 18:26] LABS: BASOPHILS # (AUTO) 0.1 10^3/uL (0.0-0.1); BASOPHILS % (AUTO) 0 % (0-10); EOSINOPHILS # (AUTO) 0.2 10^3/uL (0.0-0.3); EOSINOPHILS % (AUTO) 2 % (0-10); HEMATOCRIT 38 % (35-52); LYMPHOCYTES # (AUTO) 2.6 10^3/uL (1.0-4.0); LYMPHOCYTES % (AUTO) 22 % (12-44); MEAN CORPUSCULAR HEMOGLOBIN 28 pg (25-34); MEAN CORPUSCULAR HGB CONC 32 g/dL (32-36); MEAN CORPUSCULAR VOLUME 89 fL (80-99); MONOCYTES # (AUTO) 0.9 10^3/uL (0.0-1.0); MONOCYTES % (AUTO) 7 % (0-12); NEUTROPHILS # (AUTO) 7.9 10^3/uL (1.8-7.8); NEUTROPHILS % (AUTO) 67 % (42-75); PLATELET COUNT 201 10^3/uL (130-400); WHITE BLOOD COUNT 11.8 10^3/uL (4.3-11.0)
[2021-06-03 18:27] LABS: CALCIUM 9.3 MG/DL (8.5-10.1)
[2021-06-03 18:28] LABS: TOTAL PROTEIN 6.7 GM/DL (6.4-8.2)
[2021-06-03 18:30] LABS: BILIRUBIN,TOTAL 0.4 MG/DL (0.1-1.0)
[2021-06-03 18:32] LABS: CREATININE SERUM 0.65 MG/DL (0.60-1.30)
[2021-06-03] MEDS ORDERED: PNV11TAB5 PO (18:52)
--- NOTE | 2021-06-06 08:09 | Physician Query-Final Dx ---
Clinic Account Progress/Dx Physician Query: Please give diagnosis Please include # weeks gestation Date of Service Jun 03, 2021 at 16:47 KETTY RENO Jun 06, 2021 08:09
== END 2021-06-03 19:00 ==
LOC: LDRP 16:47 → WSo 16:47 → SURGICAL 16:47 → WSo 19:00
PROVIDERS: ATTEND Family Medicine
DX: O13.9 Gestational [pregnancy-induced] hypertension without significant proteinuria, unspecified trimester (principal); Z3A.00 Weeks of gestation of pregnancy not specified
CPT/HCPCS: 36415; 80053; 85025; 99213

== ENCOUNTER 2021-06-30 15:15 | Inpatient (IN) | payer MEDICAID ==
[~2021-06-30] VITALS: Ht 157.5 cm; Wt 133.0 kg
[~2021-06-30 15:15] MED LIST changes: +PNV11TAB5 PO
[2021-06-30 19:30] VITALS: BP 124/78
[2021-06-30] MEDS ORDERED: TERBUTALINE INJ 1 MG/ML (BRETHINE) AMP SC PRN (19:30)
[2021-06-30] MEDS ORDERED: ZOLPIDEM 5 MG (AMBIEN) TAB PO ONE (19:30)
[2021-06-30] MEDS ORDERED: MINERAL OIL CONCENTRATE 99.9% 15 ML UDC TOP PRN (19:30)
[2021-06-30] MEDS ORDERED: LACTATED RINGERS 1,000 ML IV SCH (19:30)
[2021-06-30] MEDS ORDERED: BUTORPHANOL INJ 2 MG/ML (STADOL) VIAL IV PRN (19:30)
[2021-06-30] MEDS ORDERED: D5 LR IV SOLUTION 1,000 ML IV ONE (19:31)
[2021-06-30] MEDS: D5 LR IV SOLUTION 1,000 ML IV SCH (20:25)
[2021-06-30 20:26] LABS: BASOPHILS % (AUTO) 0 % (0-10); EOSINOPHILS # (AUTO) 0.2 10^3/uL (0.0-0.3); EOSINOPHILS % (AUTO) 2 % (0-10); HEMATOCRIT 34 % (35-52); LYMPHOCYTES # (AUTO) 3.1 10^3/uL (1.0-4.0); LYMPHOCYTES % (AUTO) 25 % (12-44); MEAN CORPUSCULAR HEMOGLOBIN 27 pg (25-34); MEAN CORPUSCULAR HGB CONC 32 g/dL (32-36); MEAN CORPUSCULAR VOLUME 85 fL (80-99); MEAN PLATELET VOLUME 13.7 fL (9.0-12.2); MONOCYTES # (AUTO) 0.8 10^3/uL (0.0-1.0); MONOCYTES % (AUTO) 6 % (0-12); NEUTROPHILS # (AUTO) 8.1 10^3/uL (1.8-7.8); NEUTROPHILS % (AUTO) 66 % (42-75); PLATELET COUNT 231 10^3/uL (130-400); WHITE BLOOD COUNT 12.3 10^3/uL (4.3-11.0)
[2021-06-30 21:00] VITALS: BP 143/84
[2021-06-30 22:00] VITALS: BP 112/69
[2021-06-30] MEDS: CATHETER FLUSH 10 ML SYR IV SCH (22:05)
[2021-06-30] MEDS ORDERED: ZOLPIDEM 5 MG (AMBIEN) TAB ONE (22:11)
[2021-06-30 22:29] LABS: CALCIUM 8.9 MG/DL (8.5-10.1)
[2021-06-30 22:34] LABS: CREATININE SERUM 0.64 MG/DL (0.60-1.30)
[2021-06-30 23:00] VITALS: BP 136/63
[2021-07-01] VITALS (36 sets, daily range): BP systolic 103–153; BP diastolic 51–95
[2021-07-01] MEDS: D5 LR IV SOLUTION 1,000 ML IV SCH (04:12)
[2021-07-01] MEDS: CATHETER FLUSH 10 ML SYR IV SCH ×2 (05:26→21:40)
--- NOTE | 2021-07-01 06:46 | History & Physical-OB ---
OB - Chief Complaint & HPI Date/Time Date of Admission: Date of Admission: Jun 30, 2021 at 18:59 Date seen by a Provider: Jul 01, 2021 Time Seen by a Provider: 06:30 Chief Complaint/History OB-Reason for Admission/Chief: Induction of Labor (due to mild preeclampsia) Hx : 4 Hx Para: 3 Expected Date of Delivery: Jul 15, 2021 Gestational Age in Weeks: 38 Gestational Age in Days: 0 Indication for induction: other (mild preeclampsia) Admission Nurse Assessment Rev: Yes History of Labs GBS negative Allergies and Home Medications Allergies Coded Allergies: Penicillins (Verified Allergy, Intermediate, Rash, 08/07/19) Patient Home Medication List Home Medication List Reviewed: Yes Ondansetron (Ondansetron Odt) 4 Mg Tab.rapdis, 4 MG PO Q4H PRN for NAUSEA/VOMITING-1ST LINE Prescribed by: YUDI HOOK on 08/07/19 3742 Last Action: Reviewed Dja791/FA/Omega3/Dha/Fish Oil ( Gummies) 1 Each Tab.chew, 1 EACH PO DAILY, (Reported) Entered as Reported by: AYO JIN on 06/03/21 1214 Last Action: Reviewed OB - History Hx of Present Care: Yes Ultrasounds: Normal mid trimester US Obstetrical Complications: Pre-eclampsia (mild), Other (maternal tachycardia) Delivery History Hx Blood Disorders: No Adverse Rxn to Tranfusion: No Patient Past Medical History no chronic medical problems Social History/Family History 2nd Hand Smoke Exposure: No Immunizations Tetanus Booster (TDap): Less than 5yrs Date of Influenza Vaccine: Jun 15, 2021 OB - Admission Exam Physical Exam Vitals: Vital Signs 06/30/21 07/01/21 07/01/21 22:00 03:00 06:00 Temp 36.7 Pulse 108 Resp 16 B/P (MAP) 132/62 (85) Pulse Ox 98 O2 Delivery Room Air HEENT: Moist Membranes Heart: Rhythm Normal (with rate of 130 in office (day of induction)) Lungs: Clear Abdomen: Gravid Extremities: Normal Cervical Dilatation: Fingertip Effacement: 50% Station: Ballotable Membranes: Intact Heart Rate: 140's Accelerations: Accelerations Present Short Term Variability: Present Long-Term Variability: Average (6-25) Contractions on Admission: >10 Minutes Apart Intensity: Mild Saldana Scoring Tool (Modified) Dilation (cm): 1-2cm (1) Effacement (%): 31-51% (1) Descent/Station: -3 (0) Cervix Consistency: Medium(1) Cervix Position: Posterior (0) Add 1 point for: Each previous vaginal delivery (1) Saldana Score: 6 Labs Laboratory Tests Test 06/30/21 20:00 Range/Units White Blood Count 12.3 H 4.3-11.0 10^3/uL Red Blood Count 4.06 3.80-5.11 10^6/uL Hemoglobin 11.0 L 11.5-16.0 g/dL Hematocrit 34 L 35-52 % Mean Corpuscular Volume 85 80-99 fL Mean Corpuscular Hemoglobin 27 25-34 pg Mean Corpuscular Hemoglobin Concent 32 32-36 g/dL Red Cell Distribution Width 13.8 10.0-14.5 % Platelet Count 231 130-400 10^3/uL Mean Platelet Volume 13.7 H 9.0-12.2 fL Immature Granulocyte % (Auto) 1 % Neutrophils (%) (Auto) 66 42-75 % Lymphocytes (%) (Auto) 25 12-44 % Monocytes (%) (Auto) 6 0-12 % Eosinophils (%) (Auto) 2 0-10 % Basophils (%) (Auto) 0 0-10 % Neutrophils # (Auto) 8.1 H 1.8-7.8 10^3/uL Lymphocytes # (Auto) 3.1 1.0-4.0 10^3/uL Monocytes # (Auto) 0.8 0.0-1.0 10^3/uL Eosinophils # (Auto) 0.2 0.0-0.3 10^3/uL Basophils # (Auto) 0.0 0.0-0.1 10^3/uL Immature Granulocyte # (Auto) 0.1 0.0-0.1 10^3/uL Sodium Level 135 135-145 MMOL/L Potassium Level 4.0 3.6-5.0 MMOL/L Chloride Level 106 98-107 MMOL/L Carbon Dioxide Level 18 L 21-32 MMOL/L Anion Gap 11 5-14 MMOL/L Blood Urea Nitrogen 11 7-18 MG/DL Creatinine 0.64 0.60-1.30 MG/DL Estimat Glomerular Filtration Rate 112 BUN/Creatinine Ratio 17 Glucose Level 88 70-105 MG/DL Calcium Level 8.9 8.5-10.1 MG/DL OB - Assessment/Plan/Diagnosis Assessment Assessment: induction of labor (due to mild preeclampsia) Admission Dx 1. IUP at 38 weeks 2. Preeclampsia-mild Admission Status: Inpatient Order (span 2 midnights) Reason for Inpatient Admission: -cytotec induction -AROM in am of 07/01 Plan Plan: Induction Induction Method: AROM Other Plan -epidural planned -pitocin if necessary YUAN CLEVELAND MD Jul 01, 2021 06:46
[2021-07-01] MEDS ORDERED: OXYTOCIN PRE-MIX DRIP 500 ML IV SCH ×2 (07:45→15:45)
[2021-07-01] MEDS ORDERED: fentaNYL 2 mcg/ml BUPIVA 0.125 100 ML ONE (08:27)
[2021-07-01] MEDS ORDERED: fentaNYL INJ 100 MCG/2 ML AMP ONE (10:07)
[2021-07-01] MEDS ORDERED: MEPIVACAINE (CARBOCAINE) 2% 50 ML VIAL ONE (14:39)
--- NOTE | 2021-07-01 15:38 | OB Labor & Delivery Record ---
L&D History Date of Service Date of Service: Jul 01, 2021 History Expected Date of Delivery: Jul 15, 2021 Gestational Age in Weeks: 38 Hx : 4 Hx Para: 4 Complications Events: Routine care Operative Indications (Cesarea: N/A-Vaginal Delivery Intrapartal Events: Mild Preeclampsia L&D Stage1 Stage One Onset of Labor - Date: Jul 01, 2021 Onset of Labor - Time: 06:30 Monitors and Tracing Monitor Mode: External Heart Rate: 125 Monitor Accelerations: Uniform Monitor Decelerations: None Station: -2 Summer Babysitter Variability: Average (6-10) Short Term Variability: Present Presentation: Vertex Vital Signs VS - Last 72 Hours, by Label 06/30/21 06/30/21 06/30/21 06/30/21 19:30 19:30 21:00 22:00 Temp 37.0 37.0 36.2 36.7 Pulse 129 129 105 111 Resp 16 16 16 16 B/P (MAP) 124/78 (93) 143/84 (103) 112/69 (83) Pulse Ox 98 98 99 99 O2 Delivery Room Air Room Air Room Air 06/30/21 07/01/21 07/01/21 07/01/21 23:00 00:00 01:00 02:00 Pulse 100 111 109 106 B/P (MAP) 136/63 (87) 116/61 (79) 121/59 (79) 104/56 (72) Pulse Ox 97 07/01/21 07/01/21 07/01/21 07/01/21 03:00 04:00 05:00 06:00 Pulse 97 113 108 108 B/P (MAP) 120/76 (91) 120/78 (92) 111/55 (73) 132/62 (85) Pulse Ox 98 07/01/21 07/01/21 07/01/21 07/01/21 07:15 08:15 09:15 09:33 Pulse 115 102 106 127 Resp 18 B/P (MAP) 115/57 (76) 122/73 (89) 127/66 (86) 143/76 (98) Pulse Ox 99 07/01/21 07/01/21 07/01/21 07/01/21 09:38 09:57 10:00 10:03 Pulse 109 112 112 132 Resp 18 20 20 B/P (MAP) 153/78 (103) 145/74 (97) 145/74 (97) 129/95 (106) Pulse Ox 99 99 99 07/01/21 07/01/21 07/01/21 07/01/21 10:06 10:10 10:13 10:16 Pulse 132 146 130 125 Resp 20 20 20 20 B/P (MAP) 126/58 (80) 128/61 (83) 130/60 (83) 136/71 (92) Pulse Ox 99 99 98 07/01/21 07/01/21 07/01/21 07/01/21 10:20 10:23 10:27 10:35 Temp 36.2 Pulse 126 125 115 129 Resp 20 20 18 18 B/P (MAP) 137/68 (91) 127/63 (84) 134/60 (84) 128/63 (84) Pulse Ox 98 99 97 98 07/01/21 07/01/21 10:40 10:45 Pulse 122 122 Resp 18 18 B/P (MAP) 113/71 (85) 131/68 (89) Pulse Ox 97 99 Signs of Distress by FHT Signs of Distress no Rupture of Membranes Spontaneous Ruture of Membrane: No Amniotic Membrane Rupture Time: 0630 Amniotic Membrane Fluid Desc.: Clear Vaginal Bleeding Description: None Induction/Anesthesia Epidural Cath Placement - Time: 953 L&D Stage2 Stage Two Stage II Date: Jul 01, 2021 Stage II Time: 15:15 Monitors and Tracing Monitor Mode: External Heart Rate: 125 Monitor Accelerations: Uniform Monitor Decelerations: None Fpc Variability: Average (6-10) Position: Right Occiput Anterior Presentation: Vertex Signs of Distress by FHT Signs of Distress no Cord Descript/Complications Cord Vessel Description: 3 Vessels Delivery Type Infant Delivery Method: Spontaneous Vaginal Anterior Shoulder: Right Episiotomy/Perineal Laceration Laceraction(s)/Extensions: No Shoulder Dystocia Note Shoulder Dystocia Start Time of Delivery of HEAD: 15:15 Time shoulder dystocia called: 15:15 HOB in lowered position: Yes Time of delivery of BODY: 15:15 Rotational Maneuvers Baker II Delivery Approach 50 seconds between head and body delivery Condition of Delivery 1 minute Comment: 7 5 minute Comment: 9 Condition of Infant Condition of Infant: Living Exam: No Observed Abnormalities Resuscitation Resuscitation: N/A - Spontaneous Resp L&D Stage3 Stage Three Stage III Date: Jul 01, 2021 Stage III Time: 15:27 Pictocin Pitocin Administration mu/min: 10 Pitocin ml/hr: 10 Placenta Delivery Placenta Delivery: Spontaneous Delivery Summary Summary Estimated blood loss (mL): 200 Condition of Delivery Examined: Cervix Examined Post Hemorrhage: No Intervention Required none YUAN CLEVELAND MD Jul 01, 2021 15:38
[2021-07-01] MEDS ORDERED: NALOXONE 0.4 MG/ML 1 ML (NARCAN) VIAL IV PRN ×2 (15:45→16:30)
[2021-07-01] MEDS ORDERED: TETANUS,DIPTH,PERTUSS P/F (BOOSTRIX) 0.5 ML VIAL IM ONE (15:45)
[2021-07-01] MEDS ORDERED: BENZOCAINE/MENTHOL (DERMOPLAST) 56 ML CAN TP PRN (15:45)
[2021-07-01] MEDS ORDERED: MEASLES,MUMPS,RUBELLA 1 EA INJ SQ ONE (15:45)
[2021-07-01] MEDS ORDERED: LACTATED RINGERS 1,000 ML IV ONE (16:30)
[2021-07-01] MEDS ORDERED: fentaNYL 2 mcg/ml BUPIVA 0.125 100 ML IV SCH (16:30)
[2021-07-01] MEDS: ACETAMINOPHEN 500 MG TAB (TYLENOL) PO SCH ×2 (18:35→23:54)
[2021-07-01] MEDS: WITCH HAZEL(TUCKS) 40 EA JAR TOP PRN (18:35)
[2021-07-01] MEDS: IBUPROFEN 600 MG (MOTRIN) TAB PO SCH ×2 (18:36→23:54)
[2021-07-01] MEDS: DOCUSATE SODIUM 100 MG (COLACE) CAP PO SCH (21:39)
[2021-07-02] VITALS: BP 125/66
[2021-07-02 04:00] VITALS: BP 131/85
[2021-07-02] MEDS: ACETAMINOPHEN 500 MG TAB (TYLENOL) PO SCH ×2 (06:22→12:15)
[2021-07-02] MEDS: IBUPROFEN 600 MG (MOTRIN) TAB PO SCH ×2 (06:22→12:15)
[2021-07-02] MEDS: CATHETER FLUSH 10 ML SYR IV SCH (06:37)
[2021-07-02 07:39] LABS: BASOPHILS # (AUTO) 0.1 10^3/uL (0.0-0.1); BASOPHILS % (AUTO) 0 % (0-10); HEMOGLOBIN 10.2 g/dL (11.5-16.0); LYMPHOCYTES # (AUTO) 2.7 10^3/uL (1.0-4.0); MEAN CORPUSCULAR HEMOGLOBIN 27 pg (25-34)
[2021-07-02 07:41] LABS: EOSINOPHILS # (AUTO) 0.1 10^3/uL (0.0-0.3); EOSINOPHILS % (AUTO) 1 % (0-10); HEMATOCRIT 32 % (35-52); LYMPHOCYTES % (AUTO) 22 % (12-44); MEAN CORPUSCULAR HGB CONC 32 g/dL (32-36); MEAN CORPUSCULAR VOLUME 85 fL (80-99); MEAN PLATELET VOLUME 13.2 fL (9.0-12.2); MONOCYTES # (AUTO) 0.8 10^3/uL (0.0-1.0); MONOCYTES % (AUTO) 6 % (0-12); NEUTROPHILS # (AUTO) 8.3 10^3/uL (1.8-7.8); NEUTROPHILS % (AUTO) 69 % (42-75); PLATELET COUNT 191 10^3/uL (130-400); WHITE BLOOD COUNT 12.1 10^3/uL (4.3-11.0)
[2021-07-02] MEDS: DOCUSATE SODIUM 100 MG (COLACE) CAP PO SCH (08:49)
[2021-07-02] MEDS: WITCH HAZEL(TUCKS) 40 EA JAR TOP PRN (08:52)
[2021-07-02 10:00] VITALS: BP 136/63
[2021-07-02] MEDS ORDERED: BISACODYL 5 MG (DULCOLAX) TABLET PO ONE (13:00)
--- NOTE | 2021-07-02 16:37 | Discharge Summary ---
Diagnosis/Chief Complaint Date of Admission Jun 30, 2021 at 18:59 Date of Discharge Discharge Date: Jul 02, 2021 Discharge Time: 16:40 Admission Diagnosis Admission Diagnosis 1. IUP at 38w6d 2. Mild preeclampsia Discharge Diagnosis 1. IUP at 38w6d 2. Mild preeclampsia Discharge Summary-OBS Procedures 1. Epidural per anesthesia 2. Discharge Physical Examination Allergies: Coded Allergies: Penicillins (Verified Allergy, Intermediate, Rash, 08/07/19) Vitals & I&Os Vital Signs Date Time Temp Pulse Resp B/P (MAP) Pulse Ox O2 Delivery O2 Flow Rate FiO2 07/02/21 10:00 36.5 86 20 136/63 (87) 98 Room Air General Appearance: No Acute Distress Respiratory: Clear to Auscultation Cardiovascular: Regular Rate Abdominal: Normal Bowel Sounds, Soft Hospital Course Was the Problem List Reviewed?: Yes hg 11 on admission and DC date 10.2 Discharge Instructions to patient/family Please see electronic discharge instructions given to patient. Discharge Medications Reviewed and agree with Discharge Medication list on patient's Discharge Instruction sheet YUAN CLEVELAND MD Jul 02, 2021 16:37
--- NOTE | 2021-07-02 16:39 | Discharge Inst-Women's Service ---
Discharge Inst-Women's Serv Depart Medication/Instructions New, Converted or Re-Newed RX: Other Instructions 1. May have ibuprofen 200mg Over the counter and take 3 every 6hrs for cramps or pain. Consults/Follow Up Additional Follow Up: Yes (Dr Cleveland in 6 weeks.) Activity Activity: Activity as Tolerated Driving Instructions: No Driving for 1 Week Nothing Inside Vagina: No [place] (for 6 weeks.) Return to The Hospital For: as below Symptoms to Report to : Bleeding Excessive, Fever Over 101 Degrees F, Vaginal Discharge Foul For Any Problems or Questions: Contact Your Physician YUAN CLEVELAND MD Jul 02, 2021 16:39
--- NOTE | 2021-07-02 17:23 | Anesthesia-Regional Post-Op ---
Regional Patient Condition Mental Status: Alert, Oriented x3 Circulation: Same as Pre-Op Headache: Absent Sensation: Full Recovery Motor Block: Absent Post Op Complications Complications None Follow Up Care/Instructions Patient Instructions None needed. Anesthesia/Patient Condition Patient is doing well, no complaints, stable vital signs, no apparent adverse anesthesia problems. No complications reported per nursing. ELADIO BRITTON CRNA Jul 02, 2021 17:22
== END 2021-07-02 17:00 | disposition home or self-care (01) | DRG 807 ==
LOC: LDRP 18:59
PROVIDERS: ADMIT Family Medicine; ATTEND Family Medicine
PROC: 3E0DXGC Introduction of Other Therapeutic Substance into Mouth and Pharynx, External Approach (ICD-10-PCS; 2021-06-30)
PROC: 10E0XZZ Delivery of Products of Conception, External Approach (ICD-10-PCS; principal; 2021-07-01)
PROC: 10907ZC Drainage of Amniotic Fluid, Therapeutic from Products of Conception, Via Natural or Artificial Opening (ICD-10-PCS; 2021-07-01)
DX: O14.04 Mild to moderate pre-eclampsia, complicating childbirth (principal); Z37.0 Single live birth; Z3A.38 38 weeks gestation of pregnancy; O66.0 Obstructed labor due to shoulder dystocia; Z88.0 Allergy status to penicillin
CPT/HCPCS: 36415; 80048; 85025; 86850; 86900; 86901